=== PATIENT | male | born 1940 | race Caucasian/White ===

== ENCOUNTER → 2023-10-03 08:32 | Outpatient (CLI) | payer MEDICARE, SELFPAY ==
[2023-10-03 10:06] LABS: Add Manual Diff / Slide Review NO; Basophils Absolute Auto 100 /uL (0-100); Basophils Percent Auto 0.7 % (0-2); Eosinophils Absolute Auto 300 /uL (0-450); Eosinophils Percent Auto 3.5 % (2-4); Hematocrit 40.5 % (41-53); Hemoglobin 13.7 g/dL (13.5-17.5); Lymphocytes Absolute Auto 3500 /uL (1100-4500); Lymphocytes Percent Auto 41.4 % (25-40); Mean Corpuscular HGB Conc 33.8 % (30-36); Mean Corpuscular Volume 94.8 fL (80-100); Monocytes Absolute Auto 700 /uL (0-900); Monocytes Percent Auto 8.3 % (3-14); Neutrophils Absolute Auto 3800 /uL (1500-7000); Neutrophils Percent Auto 46.1 % (50-75); Platelet Count 132 X10^3/uL (150-400); Red Blood Cell Count 4.28 X10^6/uL (4.5-5.9); Red Cell Distribution Width 15.7 % (11.6-14.8); White Blood Cell Count 8.3 X10^3/uL (4.5-11.0)
[2023-10-03 10:30] LABS: Alanine Aminotransferase 21 IU/L (<50); Albumin 4.1 g/dL (3.5-5.0); Albumin Globulin Ratio 1.1 (1.0-2.8); Alkaline Phosphatase 202 U/L (38-126); Aspartate Aminotransferase 32 IU/L (17-59); Bilirubin Total 1.2 mg/dL (0.2-1.3); Blood Urea Nitrogen 47 mg/dL (9-20); Calcium 9.1 mg/dL (8.4-10.2); Carbon Dioxide 27 mmol/L (22-32); Chloride 102 mmol/L (98-107); Estimated Glomerular Filt Rate 32 mL/min (>60); Globulin 3.6 g/dL (1.7-4.1); Glucose 78 mg/dL (80-110); HEMOLYSIS < 15 (0-50); Potassium 4.5 mmol/L (3.4-5.1); Sodium 139 mmol/L (137-145); Total Protein 7.7 g/dL (6.3-8.2)
[2023-10-03 10:33] LABS: NT-proBNP (BNP-Adult 18+) 6630 pg/mL (<450)
== END ==
LOC: LAB 08:37
PROVIDERS: PCP Internal Medicine; Referring Provider Internal Medicine Pulmonary Disease; Visit Provider Internal Medicine Pulmonary Disease
DX: J84.112 Idiopathic pulmonary fibrosis (principal); I27.20 Pulmonary hypertension, unspecified
CPT/HCPCS: 36415; 80053; 83880; 85025

== ENCOUNTER → 2023-10-16 09:13 | Outpatient (CLI) | payer MEDICARE, SELFPAY ==
[2023-10-16 10:14] LABS: Alanine Aminotransferase 19 IU/L (<50); Albumin Globulin Ratio 1.1 (1.0-2.8); Alkaline Phosphatase 177 U/L (38-126); Aspartate Aminotransferase 29 IU/L (17-59); BUN Creatinine Ratio 22.7 (6-22); Bilirubin Total 1.2 mg/dL (0.2-1.3); Blood Urea Nitrogen 44 mg/dL (9-20); Calcium 8.9 mg/dL (8.4-10.2); Carbon Dioxide 26 mmol/L (22-32); Chloride 102 mmol/L (98-107); Estimated Glomerular Filt Rate 34 mL/min (>60); Globulin 3.6 g/dL (1.7-4.1); Glucose 76 mg/dL (80-110); HEMOLYSIS < 15 (0-50); Potassium 4.9 mmol/L (3.4-5.1); Sodium 136 mmol/L (137-145); Total Protein 7.6 g/dL (6.3-8.2)
== END ==
PROVIDERS: PCP Internal Medicine; Referring Provider Internal Medicine Pulmonary Disease; Visit Provider Internal Medicine Pulmonary Disease
DX: J84.112 Idiopathic pulmonary fibrosis (principal)
CPT/HCPCS: 36415; 80053

== ENCOUNTER → 2024-01-05 10:28 | Outpatient (CLI) | payer MEDICARE, SELFPAY ==
[2024-01-05 11:31] LABS: Add Manual Diff / Slide Review NO; Basophils Absolute Auto 100 /uL (0-100); Basophils Percent Auto 0.8 % (0-2); Eosinophils Absolute Auto 500 /uL (0-450); Eosinophils Percent Auto 5.5 % (2-4); Hematocrit 41.1 % (41-53); Hemoglobin 13.7 g/dL (13.5-17.5); Lymphocytes Absolute Auto 3100 /uL (1100-4500); Lymphocytes Percent Auto 36.8 % (25-40); Mean Corpuscular HGB Conc 33.4 % (30-36); Mean Corpuscular Hemoglobin 32.5 PG (26-34); Mean Corpuscular Volume 97.5 fL (80-100); Monocytes Absolute Auto 800 /uL (0-900); Monocytes Percent Auto 9.4 % (3-14); Neutrophils Absolute Auto 4000 /uL (1500-7000); Neutrophils Percent Auto 47.5 % (50-75); Platelet Count 130 X10^3/uL (150-400); Red Blood Cell Count 4.21 X10^6/uL (4.5-5.9); Red Cell Distribution Width 15.9 % (11.6-14.8); White Blood Cell Count 8.3 X10^3/uL (4.5-11.0)
[2024-01-05 17:43] LABS: Alanine Aminotransferase 18 IU/L (<50); Albumin 4.5 g/dL (3.5-5.0); Albumin Globulin Ratio 1.4 (1.0-2.8); Alkaline Phosphatase 160 U/L (38-126); Aspartate Aminotransferase 37 IU/L (17-59); Blood Urea Nitrogen 47 mg/dL (9-20); Calcium 8.8 mg/dL (8.4-10.2); Carbon Dioxide 29 mmol/L (22-32); Chloride 101 mmol/L (98-107); Estimated Glomerular Filt Rate 35 mL/min (>60); Globulin 3.3 g/dL (1.7-4.1); Glucose 137 mg/dL (80-110); HEMOLYSIS 49 (0-50); NT-proBNP (BNP-Adult 18+) 4590 pg/mL (<450); Potassium 5.3 mmol/L (3.4-5.1); Sodium 139 mmol/L (137-145); Total Protein 7.8 g/dL (6.3-8.2)
== END ==
PROVIDERS: PCP Internal Medicine; Referring Provider Internal Medicine Pulmonary Disease; Visit Provider Internal Medicine Pulmonary Disease
DX: J84.112 Idiopathic pulmonary fibrosis (principal)
CPT/HCPCS: 36415; 80053; 83880; 85025

== ENCOUNTER 2024-09-11 09:55 | Inpatient (IN) | payer MEDICARE, SELFPAY ==
[2024-09-11] VITALS (22 sets, daily range): BP systolic 130–160; BP diastolic 73–89; PULSE 87–94; RESP 14–28; TEMP 36.3–37.2; O2SAT 94–99; BMI 21.4
--- NOTE | 2024-09-11 10:11 | PC.NURSE ---
This RN reviewed patient orders with provider. Provider asked this RN to place the abdominal order set on patient but not the EKG. Provider than asked to include 1000ml normal saline bolus IV. This RN placed orders that provider gave verbally.
[2024-09-11] MEDS: SODIUM CHLORIDE 0.9% 1,000 ML 1000 ML IV (10:16)
[2024-09-11] MEDS: ONDANSETRON 4 MG/2 ML INJ IV (10:16)
[2024-09-11 10:21] LABS: Add Manual Diff / Slide Review NO; Basophils Absolute Auto 100 /uL (0-100); Basophils Percent Auto 1.2 % (0-2); Eosinophils Absolute Auto 500 /uL (0-450); Eosinophils Percent Auto 7.8 % (2-4); Hematocrit 46.3 % (41-53); Hemoglobin 15.4 g/dL (13.5-17.5); Lymphocytes Absolute Auto 1600 /uL (1100-4500); Lymphocytes Percent Auto 23.4 % (25-40); Mean Corpuscular HGB Conc 33.2 % (30-36); Mean Corpuscular Hemoglobin 32.7 PG (26-34); Mean Corpuscular Volume 98.4 fL (80-100); Monocytes Absolute Auto 800 /uL (0-900); Monocytes Percent Auto 11.6 % (3-14); Neutrophils Absolute Auto 3800 /uL (1500-7000); Platelet Count 97 X10^3/uL (150-400); Red Cell Distribution Width 16.3 % (11.6-14.8); White Blood Cell Count 6.9 X10^3/uL (4.5-11.0)
[2024-09-11 10:25] LABS: Alanine Aminotransferase 27 IU/L (<50); Albumin 4.5 g/dL (3.5-5.0); Albumin Globulin Ratio 1.1 (1.0-2.8); Alkaline Phosphatase 345 U/L (38-126); Aspartate Aminotransferase 45 IU/L (17-59); BUN Creatinine Ratio 17.6 (6-22); Bilirubin Total 2.3 mg/dL (0.2-1.3); Blood Urea Nitrogen 28 mg/dL (9-20); Calcium 9.1 mg/dL (8.4-10.2); Carbon Dioxide 28 mmol/L (22-32); Chloride 99 mmol/L (98-107); Estimated Glomerular Filt Rate 43 mL/min (>60); Globulin 4.2 g/dL (1.7-4.1); Glucose 110 mg/dL (80-110); HEMOLYSIS < 15 (0-50); Lipase 41 U/L (23-300); Potassium 4.7 mmol/L (3.4-5.1); Sodium 136 mmol/L (137-145); Total Protein 8.7 g/dL (6.3-8.2)
--- NOTE | 2024-09-11 10:31 | ED_ITS ---
HPI - Nausea/Vomiting/Diarrhea General Chief complaint: Nausea/Vomiting/Diarrhea Stated complaint: N/V 1 month Time Seen by Provider: 09/11/24 10:18 Source: patient Mode of arrival: EMS History of Present Illness HPI Narrative: Patient is here with and daughter. Brought in by ambulance from [facility], his home. Patient has had nausea vomiting diarrhea for the past 3 or 4 weeks. Denies abdominal pain. No hematuria no black or bloody stools. Patient has history of idiopathic pulmonary fibrosis sees Pulmonary Services at [facility]. Primary care he sees Ria dubose. Locally. Patient and and daughter have discussed and patient is DNR DNI with selective treatment at this time. There is a pulse form at home but regardless of what it says at home this is what they want at this time. They do desire Zofran normal saline basic labs and CT imaging. Related Data Home Medications Medication Instructions Recorded Confirmed furosemide 40 mg tablet 40 mg PO QAM 09/11/24 09/11/24 gabapentin 300 mg capsule 300 mg PO 3XD 09/11/24 09/11/24 insulin glargine 100 unit/mL (3 10 unit SUBCUT BID 09/11/24 09/11/24 mL) subcutaneous pen (Lantus Solostar U-100 Insulin) levothyroxine 175 mcg tablet 175 mcg PO DAILY 09/11/24 09/11/24 ondansetron HCl 4 mg tablet 4 mg PO BID PRN Nausea And Vomiting 09/11/24 09/11/24 tadalafil 20 mg tablet 20 mg PO DAILY 09/11/24 09/11/24 valsartan 40 mg tablet 40 mg PO DAILY 09/11/24 09/11/24 Allergies Allergy/AdvReac Type Severity Reaction Status Date / Time naproxen [From Aleve] Allergy Verified 09/11/24 09:59 Review of Systems Review of Systems Narrative: GENERAL: Negative chills, fatigue, malaise, fever, sweats. HEENT: Negative sinus pain, ear pain, sore throat RESPIRATORY: Negative dyspnea, cough CARDIOVASCULAR: Negative chest pain, palpitations GASTROINTESTINAL: Positive nausea, vomiting, abdominal pain : Negative dysuria, frequency, hematuria MUSCULOSKELETAL: Negative muscle or bony pain SKIN: Negative rash, skin lesions NEUROLOGIC: Negative weakness, numbness ROS Unobtainable: All systems reviewed & are unremarkable except as noted in HPI and below Patient History Social History household members: spouse Smoking Status: Former smoker Smoking Status: Unknown if ever smoked Exam Narrative Exam Narrative: GENERAL: in no distress, not toxic not dyspneic HEAD: Normocephalic. EYES: Pupils equal round ENT: Mucous membranes dry. NECK: Trachea midline. CARDIOVASCULAR: Regular rate and rhythm RESPIRATORY: Clear to auscultation. Breath sounds equal bilaterally. No wheezes, rales, or rhonchi. GASTROINTESTINAL: Abdomen soft, reproducible epigastric and left lower quadrant tenderness. No peritoneal signs no guarding or rebound. No pain out of portion exam. Bowel sounds are present EXTREMITIES: No gross deformities. BACK: No flank tenderness. NEURO: AOx4. Clear speech SKIN: Warm and dry PSYCH: Not anxious, is cooperative Initial Vital Signs Initial Vital Signs: Vital Signs Temperature 97.6 F 09/11/24 09:55 Pulse Rate 90 09/11/24 09:55 Respiratory Rate 14 09/11/24 09:55 Blood Pressure 149/76 H 09/11/24 09:55 Pulse Oximetry 97 09/11/24 09:55 Oxygen Delivery Method Nasal Cannula 09/11/24 09:55 Oxygen Flow Rate 4 09/11/24 09:55 Course Orders Ordered: ED Orders 09/11/24 10:07 Complete Blood Count AUTO DIFF Stat Comprehensive Metabolic Panel Stat Lipase Stat 09/11/24 10:19 GI Panel (Film Array) Stat 09/11/24 10:30 CT chest abd pel wo con Stat 09/11/24 10:35 Covid-19 + FLU A/B + RSV - PCR Stat Enoxaparin Sodium (Enoxaparin 30 Mg/0.3 Ml Syringe) 30 mg SUBCUT DAILY KINGS Hydromorphone HCl (Hydromorphone 0.5 Mg Inj) 0.5 mg IV Q2H PRN PRN Reason: Pain, Severe (7-10) Sodium Chloride (Normal Saline 0.9%) 1,000 mls @ 100 mls/hr IV CONT KINGS Last Admin: 09/11/24 14:44 Dose: 100 mls/hr Documented By: GAIL Naloxone HCl (Naloxone 0.4 Mg/Ml Vial) 0.2 mg IV Q2MIN PRN PRN Reason: Opiate Reversal Ondansetron HCl (Ondansetron 4 Mg/2 Ml Inj) 4 mg IV NOW PRN PRN Reason: Nausea And Vomiting Last Admin: 09/11/24 10:16 Dose: 4 mg Documented By: DIEGO Ondansetron HCl (Ondansetron 4 Mg Odt) 4 mg PO NOW PRN PRN Reason: Nausea And Vomiting Ondansetron HCl (Ondansetron 4 Mg/2 Ml Inj) 4 mg IV Q8HR PRN PRN Reason: Nausea And Vomiting Pantoprazole Sodium (Pantoprazole 40 Mg Vial) 40 mg IV DAILY KINGS Last Admin: 09/11/24 14:43 Dose: 40 mg Documented By: GAIL Discontinued Medications Sodium Chloride (Normal Saline 0.9%) 1,000 mls @ 1,000 mls/hr IV BOLUS ONE Stop: 09/11/24 11:09 Last Infusion: 09/11/24 11:32 Dose: Infused Documented By: Admin: 09/11/24 10:16 Dose: 1,000 mls/hr Documented By: DIEGO Ceftriaxone Sodium 2,000 mg/ (Sodium Chloride) 100 mls @ 200 mls/hr IV NOW ONE Stop: 09/11/24 13:20 Last Admin: 09/11/24 14:08 Dose: 200 mls/hr Documented By: SELMA Vital Signs Vital signs: Vital Signs - 8 hr 09/11/24 09:55 09/11/24 09:58 09/11/24 09:58 Temperature 97.6 F Pulse Rate 90 90 Respiratory Rate 14 Blood Pressure 149/76 H 149/76 H Pulse Oximetry 97 98 Oxygen Delivery Method Nasal Cannula Nasal Cannula Oxygen Flow Rate 4 4 09/11/24 10:00 09/11/24 10:00 09/11/24 10:15 Temperature Pulse Rate 90 89 Respiratory Rate Blood Pressure 149/76 H Pulse Oximetry 98 97 Oxygen Delivery Method Nasal Cannula Nasal Cannula Oxygen Flow Rate 4 4 09/11/24 10:15 09/11/24 10:30 09/11/24 10:30 Temperature Pulse Rate 87 Respiratory Rate Blood Pressure 160/89 H 153/87 H Pulse Oximetry 96 Oxygen Delivery Method Nasal Cannula Oxygen Flow Rate 4 09/11/24 10:46 09/11/24 10:46 09/11/24 11:00 Temperature Pulse Rate 90 89 Respiratory Rate Blood Pressure 147/83 H Pulse Oximetry 95 97 Oxygen Delivery Method Nasal Cannula Nasal Cannula Oxygen Flow Rate 4 4 09/11/24 11:00 09/11/24 11:15 09/11/24 11:15 Temperature Pulse Rate 89 Respiratory Rate Blood Pressure 149/84 H 148/85 H Pulse Oximetry 98 Oxygen Delivery Method Nasal Cannula Oxygen Flow Rate 4 09/11/24 11:30 09/11/24 11:30 09/11/24 11:45 Temperature Pulse Rate 90 89 Respiratory Rate Blood Pressure 142/85 H Pulse Oximetry 99 98 Oxygen Delivery Method Nasal Cannula Oxygen Flow Rate 4 09/11/24 11:45 09/11/24 12:00 09/11/24 12:00 Temperature Pulse Rate 89 Respiratory Rate Blood Pressure 140/81 136/80 Pulse Oximetry 98 Oxygen Delivery Method Nasal Cannula Oxygen Flow Rate 4 09/11/24 12:15 09/11/24 12:15 09/11/24 12:30 Temperature Pulse Rate 87 Respiratory Rate Blood Pressure 137/80 132/80 Pulse Oximetry 98 Oxygen Delivery Method Nasal Cannula Oxygen Flow Rate 4 09/11/24 12:30 09/11/24 12:45 09/11/24 12:45 Temperature Pulse Rate 89 90 Respiratory Rate Blood Pressure 132/76 Pulse Oximetry 98 98 Oxygen Delivery Method Nasal Cannula Nasal Cannula Oxygen Flow Rate 4 4 09/11/24 13:00 09/11/24 13:00 09/11/24 13:15 Temperature Pulse Rate 91 H 89 Respiratory Rate Blood Pressure 140/81 Pulse Oximetry 96 97 Oxygen Delivery Method Nasal Cannula Nasal Cannula Oxygen Flow Rate 4 4 09/11/24 13:15 Temperature Pulse Rate Respiratory Rate Blood Pressure 139/78 Pulse Oximetry Oxygen Delivery Method Oxygen Flow Rate MDM - Nausea/Vomiting/Diarrhea Lab Data 09/11/24 10:07 09/11/24 10:07 Labs: Lab Results 09/11/24 09/11/24 Range/Units 10:07 10:35 WBC 6.9 (4.5-11.0) X10^3/uL RBC 4.70 (4.5-5.9) X10^6/uL Hgb 15.4 (13.5-17.5) g/dL Hct 46.3 (41-53) % MCV 98.4 (80-100) fL MCH 32.7 (26-34) PG MCHC 33.2 (30-36) % RDW 16.3 H (11.6-14.8) % Plt Count 97 L (150-400) X10^3/uL Neut % (Auto) 56.0 (50-75) % Lymph % (Auto) 23.4 L (25-40) % [place] % (Auto) 11.6 (3-14) % Eos % (Auto) 7.8 H (2-4) % Baso % (Auto) 1.2 (0-2) % Neut # (Auto) 3800 (1036-3172) /uL Lymph # (Auto) 1600 (6027-7237) /uL [place] # (Auto) 800 (0-900) /uL Eos # (Auto) 500 H (0-450) /uL Baso # (Auto) 100 (0-100) /uL Sodium 136 L (137-145) mmol/L Potassium 4.7 (3.4-5.1) mmol/L Chloride 99 (98-107) mmol/L Carbon Dioxide 28 (22-32) mmol/L BUN 28 H (9-20) mg/dL Creatinine 1.59 H (0.66-1.25) mg/dL Estimated GFR 43 L (>60) mL/min BUN/Creatinine Ratio 17.6 (6-22) Glucose 110 (80-110) mg/dL Calcium 9.1 (8.4-10.2) mg/dL Total Bilirubin 2.3 H (0.2-1.3) mg/dL AST 45 (17-59) IU/L ALT 27 (<50) IU/L Alkaline Phosphatase 345 H (38-126) U/L Total Protein 8.7 H (6.3-8.2) g/dL Albumin 4.5 (3.5-5.0) g/dL Globulin 4.2 H (1.7-4.1) g/dL Albumin/Globulin Ratio 1.1 (1.0-2.8) Lipase 41 (23-300) U/L SARS-CoV-2 (PCR) Negative (Negative) Influenza A (RT-PCR) Flu a negative (NEGATIVE) Influenza B (RT-PCR) Flu b negative (NEGATIVE) RSV (PCR) Negative (Negative) Imaging Data CT scan - abdomen/pelvis: Radiologist's Impression: [address] [address] [address] Scan Report Signed Patient: Alan Rankin MR#: [id number] : 1940 Acct:[id number] Age/Sex: 84 / M Date of Service: 09/11/24 Loc: ED Accession Number: [id number] Procedure: CT chest abd pel wo con Ordering Provider: Jaquan Mayer MD PROCEDURE: CT CHEST ABD PEL WO CON INDICATIONS: Sepsis TECHNIQUE: After the administration of oral contrast, 5 mm thick sections acquired from the lung apices to the symphysis pubis. 5 mm thick coronal and sagittal reformats acquired, with additional 7 mm coronal MIP reformats through the lungs. For radiation dose reduction, the following was used: automated exposure control, adjustment of mA and/or kV according to patient size. COMPARISON: None. FINDINGS: Image quality: Diagnostic. CHEST: Lower Neck: No enlarged lymph nodes. Thyroid: No thyroid nodules which require sonographic follow up, per consensus guidelines. Axillae: No enlarged lymph nodes. Chest Wall: Unremarkable. Bones: Unremarkable. Lungs and Pleura: No pneumothorax or pleural effusions. Mild changes of diffuse pulmonary fibrosis. There is a mid bibasilar predominance where there is honeycombing. There is focal thickening along the posterior superior aspect of the right major fissure. No focal airspace consolidation. Heart: Cardiomegaly. Advanced triple-vessel coronary artery calcifications. Enlargement of the ventricles and right atrium. Remote CABG. Thoracic Vessels: The aorta and pulmonary arteries demonstrate normal size. Mediastinum and Millicent: No enlarged lymph nodes. Esophagus: No wall thickening. No hiatal hernia. ABDOMEN: Liver: No solid mass. Gallbladder: Tiny gallstone. No gallbladder wall thickening. Gallbladder is mildly distended. Biliary ducts: No biliary dilation. Pancreas: No ductal dilation. Pancreatic atrophy. Inflammatory change in the subjacent fat, most notably in the vicinity of a duodenal diverticulum. Spleen: Size is within normal limits. Adrenal Glands: No adrenal nodules. Kidneys and Ureters: No hydronephrosis. No solid mass. No complex renal cystic lesion which requires follow up. Stomach and Bowel: Question diverticulitis of a duodenal diverticulum. Reference axial image 111 of series 2. There is inflammatory change in the subjacent fat. There is an air-fluid level and there is non layering air present within the diverticula as well. Alternatively, the subjacent inflammatory change can be related to pancreatitis. Normal colonic caliber, without significant wall thickening. Colonic diverticulosis without evidence of acute diverticulitis. Possible mild ileus pattern. Peritoneum: No abnormal intraperitoneal fluid. No free air. Ventral Wall: No hernia. Abdominal Nodes: No retroperitoneal or mesenteric adenopathy by size criteria. Vessels: Aorta and inferior vena cava are normal in size. PELVIS: Pelvic Organs: Prostatomegaly. Bladder: Unremarkable. Pelvic Nodes: No enlarged lymph nodes. Miscellaneous: No inguinal hernias are seen. Bones: No aggressive osseous abnormality. IMPRESSION: 1. Question acute diverticulitis of a duodenal diverticulum versus the presence of a diverticulum and subjacent inflammatory change from pancreatitis. Duodenal diverticulum diverticulitis is favored based on the pattern of air and fluid within the diverticulum. 2. Chronic interstitial pulmonary fibrosis. 3. Remote CABG, it advanced coronary artery calcifications, cardiomegaly. 4. Cholelithiasis. 5. Colonic diverticulosis. Dictated by: Shelton Field M.D. on 09/11/2024 at 11:00 Approved by: Shelton Field M.D. on 09/11/2024 at 11:12 [facility] Narrative Medical decision making narrative: Patient is here with and daughter. Brought in by ambulance from [facility], his home. Patient has had nausea vomiting diarrhea for the past 3 or 4 weeks. Denies abdominal pain. No hematuria no black or bloody stools. Patient has history of idiopathic pulmonary fibrosis sees Pulmonary Services at [facility]. Primary care he sees Ria dubose. Locally. Patient and and daughter have discussed and patient is DNR DNI with selective treatment at this time. There is a pulse form at home but regardless of what it says at home this is what they want at this time. They do desire Zofran normal saline basic labs and CT imaging. After history and exam CBC CMP lipase CT abdomen pelvis normal saline Zofran [facility] Medical records reviewed: No recent visit for this complaint Differential considered: Includes but not limited to bowel obstruction colitis diverticulitis cholelithiasis appendicitis bowel perforation viral syndrome Lab Test results independently reviewed as above. Pertinent findings: Independently reviewed EKG Imaging studies independently reviewed: CT abdomen pelvis duodenal diverticulitis Consultations: 1:[address] Yu, general surgeon, has reviewed CT imaging. He will follow in consult. Will recommend soft diet, start antibiotics. 1:[address] Berg hospitalist, who will admit patient Treatments: Normal saline Rocephin Re-evaluations: 1:00 p.m.. Patient is feeling better but is fearful of nausea vomiting diarrhea returning if home treatment with oral antibiotics. They do desire admission in the hospital. Discussion: Appropriate for admission. Reviewed with hospitalist and general surgeon agree for admit. Diagnosis: Duodenal diverticulitis Discharge Plan Departure Patient Disposition: Admitted as Observation Clinical Impression: Diverticulitis of duodenum Admit Date/Time: 09/11/24 13:19 Admit Provider: Kemar Berg
[2024-09-11 11:18] LABS: Influenza A - CEPHEID Flu A NEGATIVE (NEGATIVE); Influenza B - CEPHEID Flu B NEGATIVE (NEGATIVE); Respiratory Syncytial Virus Negative (Negative)
[2024-09-11 11:22] LABS: COVID-19 CEPHEID 4-PLEX PCR Negative (Negative)
--- NOTE | 2024-09-11 13:28 | PM.HP.1 ---
History of Present Illness History of Present Illness Date Patient Seen: 09/11/24 Chief complaint: N/V 1 month Narrative: This is an 84-year-old male with idiopathic pulmonary fibrosis who presents with 3 weeks of abdominal pain, nausea and diarrhea. His CT scan shows duodenal diverticulum inflammation consistent with an atypical location for diverticulitis. He has no history of diverticulitis. He denies bloody diarrhea or hematemesis. He has no fevers. At baseline he is on 3 L nasal cannula oxygen for the last 8 years to treat his pulmonary fibrosis. His lipase level is normal at 41. Surgery will see him. He will be kept NPO until the pain diminishes and will be treated with Zosyn. [facility]LY [facility] Medical History (Updated 09/11/24 @ 18:11 by Kemar Berg MD) IPF (idiopathic pulmonary fibrosis) CAD (coronary artery disease) Surgical History (Updated 09/11/24 @ 18:11 by Kemar Berg MD) Hx of CABG Social History household members: spouse Smoking Status: Former smoker Meds Home Medications and Allergies Home Medications Medication Instructions Recorded Confirmed Type furosemide 40 mg tablet 40 mg PO QAM 09/11/24 09/11/24 History gabapentin 300 mg capsule 300 mg PO 3XD 09/11/24 09/11/24 History insulin glargine 100 unit/mL (3 10 unit SUBCUT BID 09/11/24 09/11/24 History mL) subcutaneous pen (Lantus Solostar U-100 Insulin) levothyroxine 175 mcg tablet 175 mcg PO DAILY 09/11/24 09/11/24 History ondansetron HCl 4 mg tablet 4 mg PO BID PRN Nausea And Vomiting 09/11/24 09/11/24 History tadalafil 20 mg tablet 20 mg PO DAILY 09/11/24 09/11/24 History valsartan 40 mg tablet 40 mg PO DAILY 09/11/24 09/11/24 History Allergies Allergy/AdvReac Type Severity Reaction Status Date / Time naproxen [From Aleve] Allergy Verified 09/11/24 09:59 Review of Systems Review of Systems Narrative: Positive for abdominal pain, nausea and vomiting. Positive for brown colored copious liquid stools. Negative for fevers, chills, sweats, coughing, chest pain, abdominal pain, bleeding, rashes, joint pain, sore throat, headache, new allergies. Exam Vital Signs (past 8 hours): - 09/11/24 09:55 09/11/24 09:58 09/11/24 09:58 Temperature 97.6 F Pulse Rate 90 90 Respiratory Rate 14 Blood Pressure 149/76 H 149/76 H Pulse Oximetry 97 98 Oxygen Delivery Method Nasal Cannula Nasal Cannula Oxygen Flow Rate 4 4 09/11/24 10:00 09/11/24 10:00 09/11/24 10:15 Temperature Pulse Rate 90 89 Respiratory Rate Blood Pressure 149/76 H Pulse Oximetry 98 97 Oxygen Delivery Method Nasal Cannula Nasal Cannula Oxygen Flow Rate 4 4 09/11/24 10:15 09/11/24 10:30 09/11/24 10:30 Temperature Pulse Rate 87 Respiratory Rate Blood Pressure 160/89 H 153/87 H Pulse Oximetry 96 Oxygen Delivery Method Nasal Cannula Oxygen Flow Rate 4 09/11/24 10:46 09/11/24 10:46 09/11/24 11:00 Temperature Pulse Rate 90 89 Respiratory Rate Blood Pressure 147/83 H Pulse Oximetry 95 97 Oxygen Delivery Method Nasal Cannula Nasal Cannula Oxygen Flow Rate 4 4 09/11/24 11:00 09/11/24 11:15 09/11/24 11:15 Temperature Pulse Rate 89 Respiratory Rate Blood Pressure 149/84 H 148/85 H Pulse Oximetry 98 Oxygen Delivery Method Nasal Cannula Oxygen Flow Rate 4 09/11/24 11:30 09/11/24 11:30 09/11/24 11:45 Temperature Pulse Rate 90 89 Respiratory Rate Blood Pressure 142/85 H Pulse Oximetry 99 98 Oxygen Delivery Method Nasal Cannula Oxygen Flow Rate 4 09/11/24 11:45 09/11/24 12:00 09/11/24 12:00 Temperature Pulse Rate 89 Respiratory Rate Blood Pressure 140/81 136/80 Pulse Oximetry 98 Oxygen Delivery Method Nasal Cannula Oxygen Flow Rate 4 09/11/24 12:15 09/11/24 12:15 09/11/24 12:30 Temperature Pulse Rate 87 Respiratory Rate Blood Pressure 137/80 132/80 Pulse Oximetry 98 Oxygen Delivery Method Nasal Cannula Oxygen Flow Rate 4 09/11/24 12:30 09/11/24 12:45 09/11/24 12:45 Temperature Pulse Rate 89 90 Respiratory Rate Blood Pressure 132/76 Pulse Oximetry 98 98 Oxygen Delivery Method Nasal Cannula Nasal Cannula Oxygen Flow Rate 4 4 09/11/24 13:00 09/11/24 13:00 Temperature Pulse Rate 91 H Respiratory Rate Blood Pressure 140/81 Pulse Oximetry 96 Oxygen Delivery Method Nasal Cannula Oxygen Flow Rate 4 Oxygen Delivery Method Nasal Cannula Oxygen Flow Rate 4 Narrative Exam Narrative: Alert and oriented x3. No apparent distress Pupils are equally round reactive to light and accommodation Sclerae are pink and nonicteric Extraocular muscles are intact Heart is regular rate and rhythm without murmur Lungs are clear to auscultation bilaterally Extremities have no ankle edema Abdomen is soft, diffusely mildly tender without localizing. Bowel sounds are active. No organomegaly Skin has no rash or jaundice Neuro exam: Cranial nerves 2-12 test intact Motor function is 4/5 throughout There is no tremor. Objective Imaging CT scan - abdomen: Radiologist's impression: PROCEDURE: CT CHEST ABD PEL WO CON INDICATIONS: Sepsis TECHNIQUE: After the administration of oral contrast, 5 mm thick sections acquired from the lung apices to the symphysis pubis. 5 mm thick coronal and sagittal reformats acquired, with additional 7 mm coronal MIP reformats through the lungs. For radiation dose reduction, the following was used: automated exposure control, adjustment of mA and/or kV according to patient size. COMPARISON: None. FINDINGS: Image quality: Diagnostic. CHEST: Lower Neck: No enlarged lymph nodes. Thyroid: No thyroid nodules which require sonographic follow up, per consensus guidelines. Axillae: No enlarged lymph nodes. Chest Wall: Unremarkable. Bones: Unremarkable. Lungs and Pleura: No pneumothorax or pleural effusions. Mild changes of diffuse pulmonary fibrosis. There is a mid bibasilar predominance where there is honeycombing. There is focal thickening along the posterior superior aspect of the right major fissure. No focal airspace consolidation. Heart: Cardiomegaly. Advanced triple-vessel coronary artery calcifications. Enlargement of the ventricles and right atrium. Remote CABG. Thoracic Vessels: The aorta and pulmonary arteries demonstrate normal size. Mediastinum and Millicent: No enlarged lymph nodes. Esophagus: No wall thickening. No hiatal hernia. ABDOMEN: Liver: No solid mass. Gallbladder: Tiny gallstone. No gallbladder wall thickening. Gallbladder is mildly distended. Biliary ducts: No biliary dilation. Pancreas: No ductal dilation. Pancreatic atrophy. Inflammatory change in the subjacent fat, most notably in the vicinity of a duodenal diverticulum. Spleen: Size is within normal limits. Adrenal Glands: No adrenal nodules. Kidneys and Ureters: No hydronephrosis. No solid mass. No complex renal cystic lesion which requires follow up. Stomach and Bowel: Question diverticulitis of a duodenal diverticulum. Reference axial image 111 of series 2. There is inflammatory change in the subjacent fat. There is an air-fluid level and there is non layering air present within the diverticula as well. Alternatively, the subjacent inflammatory change can be related to pancreatitis. Normal colonic caliber, without significant wall thickening. Colonic diverticulosis without evidence of acute diverticulitis. Possible mild ileus pattern. Peritoneum: No abnormal intraperitoneal fluid. No free air. Ventral Wall: No hernia. Abdominal Nodes: No retroperitoneal or mesenteric adenopathy by size criteria. Vessels: Aorta and inferior vena cava are normal in size. PELVIS: Pelvic Organs: Prostatomegaly. Bladder: Unremarkable. Pelvic Nodes: No enlarged lymph nodes. Miscellaneous: No inguinal hernias are seen. Bones: No aggressive osseous abnormality. IMPRESSION: 1. Question acute diverticulitis of a duodenal diverticulum versus the presence of a diverticulum and subjacent inflammatory change from pancreatitis. Duodenal diverticulum diverticulitis is favored based on the pattern of air and fluid within the diverticulum. 2. Chronic interstitial pulmonary fibrosis. 3. Remote CABG, it advanced coronary artery calcifications, cardiomegaly. 4. Cholelithiasis. 5. Colonic diverticulosis. Dictated by: Shelton Field M.D. on 09/11/2024 at 11:00 Labs 09/11/24 10:07 09/11/24 10:07 Labs: Laboratory Results - last 24 hr 09/11/24 09/11/24 10:07 10:35 WBC 6.9 RBC 4.70 Hgb 15.4 Hct 46.3 MCV 98.4 MCH 32.7 MCHC 33.2 RDW 16.3 H Plt Count 97 L Neut % (Auto) 56.0 Lymph % (Auto) 23.[address] [place] % (Auto) 11.6 Eos % (Auto) 7.8 H Baso % (Auto) 1.2 Neut # (Auto) 3800 Lymph # (Auto) [address] [place] # (Auto) 800 Eos # (Auto) 500 H Baso # (Auto) 100 Sodium 136 L Potassium 4.7 Chloride 99 Carbon Dioxide 28 BUN 28 H Creatinine 1.59 H Estimated GFR 43 L BUN/Creatinine Ratio 17.6 Glucose 110 Calcium 9.1 Total Bilirubin 2.3 H AST 45 ALT 27 Alkaline Phosphatase 345 H Total Protein 8.7 H Albumin 4.5 Globulin 4.2 H Albumin/Globulin Ratio 1.1 Lipase 41 SARS-CoV-2 (PCR) Negative Influenza A (RT-PCR) Flu a negative Influenza B (RT-PCR) Flu b negative RSV (PCR) Negative Assessment & Plan Assessment & Plan narrative: This is an 84-year-old male with idiopathic pulmonary fibrosis who presents with 3 weeks of abdominal pain, nausea and diarrhea. His CT scan shows duodenal diverticulum inflammation consistent with an atypical location for diverticulitis. Small-bowel diverticulitis, present on admission -duodenal diverticular inflammation unlikely to be pancreatitis with normal lipase. -High risk for perforation/bleeding -surgery following, NPO, IV fluid support, Dilaudid IV as needed -IV Zosyn, IV Protonix Type 2 diabetes mellitus, present on admission -correctional lispro scale low-dose with glargine on hold until able to take nutrition by mouth. Hypertension, present on admission -continue valsartan and hold furosemide, resume as needed Hypothyroidism, present on admission -continue levothyroxine DVT prevention-enoxaparin Time-Based Coding :: [TOTAL MINUTES] spent with patient and on the chart (including review of chart, obtaining history, exam, reviewing outside data, placing orders, documenting exam and treatment plan, and counseling patient) on [DATE].
[2024-09-11] MEDS: cefTRIAXone 2,000 MG in SODIUM CHLORIDE 0.9% 100 ML 200 MG IV (14:08)
[2024-09-11] MEDS: PANTOPRAZOLE 40 MG VIAL IV ×2 (14:43→20:17)
[2024-09-11] MEDS: SODIUM CHLORIDE 0.9% 1,000 ML 100 ML IV (14:44)
[2024-09-11] MEDS: ONDANSETRON 4 MG ODT PO (15:13)
--- NOTE | 2024-09-11 16:37 | P.CONS_ITS ---
History of Present Illness Consult details Date Patient Seen: 09/11/24 Time Patient Seen: 16:37 Chief complaint: N/V 1 month Requesting provider: Kemar Berg Narrative: This is an 84-year-old white male with a CT scan showing duodenal diverticulitis. He has had nausea and vomiting for about a month along with diarrhea. It has gotten worse and he presented to the ER. He stated that several years ago he had the same event, underwent an EGD at that time and it improved with antibiotics. He is currently having some epigastric pain, and is concerned that drinking we will cause more diarrhea. He had a previous open heart surgery. No prior abdominal surgeries. Meds Home Medications and Allergies Home Medications Medication Instructions Recorded Confirmed Type furosemide 40 mg tablet 40 mg PO QAM 09/11/24 09/11/24 History gabapentin 300 mg capsule 300 mg PO 3XD 09/11/24 09/11/24 History insulin glargine 100 unit/mL (3 10 unit SUBCUT BID 09/11/24 09/11/24 History mL) subcutaneous pen (Lantus Solostar U-100 Insulin) levothyroxine 175 mcg tablet 175 mcg PO DAILY 09/11/24 09/11/24 History ondansetron HCl 4 mg tablet 4 mg PO BID PRN Nausea And Vomiting 09/11/24 09/11/24 History tadalafil 20 mg tablet 20 mg PO DAILY 09/11/24 09/11/24 History valsartan 40 mg tablet 40 mg PO DAILY 09/11/24 09/11/24 History Allergies Allergy/AdvReac Type Severity Reaction Status Date / Time naproxen [From Aleve] Allergy Verified 09/11/24 09:59 Review of Systems Review of Systems ROS: Yes All systems reviewed with the patient and are negative except as otherwise documented Exam Vital Signs (past 8 hours): - 09/11/24 09:55 09/11/24 09:58 09/11/24 09:58 Temperature 97.6 F Pulse Rate 90 90 Respiratory Rate 14 Blood Pressure 149/76 H 149/76 H Pulse Oximetry 97 98 Oxygen Delivery Method Nasal Cannula Nasal Cannula Oxygen Flow Rate 4 4 09/11/24 10:00 09/11/24 10:00 09/11/24 10:15 Temperature Pulse Rate 90 89 Respiratory Rate Blood Pressure 149/76 H Pulse Oximetry 98 97 Oxygen Delivery Method Nasal Cannula Nasal Cannula Oxygen Flow Rate 4 4 09/11/24 10:15 09/11/24 10:30 09/11/24 10:30 Temperature Pulse Rate 87 Respiratory Rate Blood Pressure 160/89 H 153/87 H Pulse Oximetry 96 Oxygen Delivery Method Nasal Cannula Oxygen Flow Rate 4 09/11/24 10:46 09/11/24 10:46 09/11/24 11:00 Temperature Pulse Rate 90 89 Respiratory Rate Blood Pressure 147/83 H Pulse Oximetry 95 97 Oxygen Delivery Method Nasal Cannula Nasal Cannula Oxygen Flow Rate 4 4 09/11/24 11:00 09/11/24 11:15 09/11/24 11:15 Temperature Pulse Rate 89 Respiratory Rate Blood Pressure 149/84 H 148/85 H Pulse Oximetry 98 Oxygen Delivery Method Nasal Cannula Oxygen Flow Rate 4 09/11/24 11:30 09/11/24 11:30 09/11/24 11:45 Temperature Pulse Rate 90 89 Respiratory Rate Blood Pressure 142/85 H Pulse Oximetry 99 98 Oxygen Delivery Method Nasal Cannula Oxygen Flow Rate 4 09/11/24 11:45 09/11/24 12:00 09/11/24 12:00 Temperature Pulse Rate 89 Respiratory Rate Blood Pressure 140/81 136/80 Pulse Oximetry 98 Oxygen Delivery Method Nasal Cannula Oxygen Flow Rate 4 09/11/24 12:15 09/11/24 12:15 09/11/24 12:30 Temperature Pulse Rate 87 Respiratory Rate Blood Pressure 137/80 132/80 Pulse Oximetry 98 Oxygen Delivery Method Nasal Cannula Oxygen Flow Rate 4 09/11/24 12:30 09/11/24 12:45 09/11/24 12:45 Temperature Pulse Rate 89 90 Respiratory Rate Blood Pressure 132/76 Pulse Oximetry 98 98 Oxygen Delivery Method Nasal Cannula Nasal Cannula Oxygen Flow Rate 4 4 09/11/24 13:00 09/11/24 13:00 09/11/24 13:15 Temperature Pulse Rate 91 H 89 Respiratory Rate Blood Pressure 140/81 Pulse Oximetry 96 97 Oxygen Delivery Method Nasal Cannula Nasal Cannula Oxygen Flow Rate 4 4 09/11/24 13:15 09/11/24 13:22 09/11/24 13:30 Temperature Pulse Rate 92 H Respiratory Rate Blood Pressure 139/78 Pulse Oximetry 97 Oxygen Delivery Method Nasal Cannula Nasal Cannula Oxygen Flow Rate 4 09/11/24 13:30 09/11/24 13:45 09/11/24 13:45 Temperature Pulse Rate 89 Respiratory Rate Blood Pressure 134/73 130/74 Pulse Oximetry 98 Oxygen Delivery Method Nasal Cannula Oxygen Flow Rate 4 09/11/24 14:00 09/11/24 14:00 09/11/24 14:15 Temperature Pulse Rate 91 H 89 Respiratory Rate Blood Pressure 145/76 H Pulse Oximetry 98 98 Oxygen Delivery Method Nasal Cannula Nasal Cannula Oxygen Flow Rate 4 4 09/11/24 14:15 Temperature Pulse Rate Respiratory Rate Blood Pressure 145/77 H Pulse Oximetry Oxygen Delivery Method Oxygen Flow Rate Oxygen Delivery Method Nasal Cannula Oxygen Flow Rate 4 Narrative Exam Narrative: Gen: NAD, sitting comfortably in bed, appears well HEENT: Sclera are anicteric, head is normocephalic and atraumatic, trachea is midline. CV: RRR, no JVD Resp: clear to auscultation bilaterally, equal chest wall movement bilaterally Abd: soft, mildly tender in epigastrium, no rebound or guarding, normoactive bowel sounds Ext: no edema, full range of motion Neuro: Cranial nerves II-XII grossly intact, no focal deficits Skin: No erythema or ecchymosis Objective Imaging CT scan - abdomen: My impression: My independent review of the CT of the abdomen shows duodenal diverticulitis without free perforation or free fluid. Labs 09/11/24 10:07 09/11/24 10:07 Labs: Laboratory Results - last 24 hr 09/11/24 09/11/24 10:07 10:35 WBC 6.9 RBC 4.70 Hgb 15.4 Hct 46.3 MCV 98.4 MCH 32.7 MCHC 33.2 RDW 16.3 H Plt Count 97 L Neut % (Auto) 56.0 Lymph % (Auto) 23.4 L [place] % (Auto) 11.6 Eos % (Auto) 7.8 H Baso % (Auto) 1.2 Neut # (Auto) 3800 Lymph # (Auto) 1600 [place] # (Auto) 800 Eos # (Auto) 500 H Baso # (Auto) 100 Sodium 136 L Potassium 4.7 Chloride 99 Carbon Dioxide 28 BUN 28 H Creatinine 1.59 H Estimated GFR 43 L BUN/Creatinine Ratio 17.6 Glucose 110 Calcium 9.1 Total Bilirubin 2.3 H AST 45 ALT 27 Alkaline Phosphatase 345 H Total Protein 8.7 H Albumin 4.5 Globulin 4.2 H Albumin/Globulin Ratio 1.1 Lipase 41 SARS-CoV-2 (PCR) Negative Influenza A (RT-PCR) Flu a negative Influenza B (RT-PCR) Flu b negative RSV (PCR) Negative PFSH Social History household members: spouse Tobacco & Substance Use Smoking Status: Former smoker Assessment & Plan Assessment and plan (1) Diverticulitis of duodenum: Status: Acute Assessment & Plan narrative: Patient does not have tachycardia, peritonitis, leukocytosis or fever. We will make him NPO until his diarrhea and abdominal pain resolve. Okay to take small sips and medications by mouth. IV antibiotics. No plan for urgent EGD. Time-Based Coding :: [TOTAL MINUTES] spent with patient and on the chart (including review of chart, obtaining history, exam, reviewing outside data, placing orders, documenting exam and treatment plan, and counseling patient) on [DATE]. PROFEE Charge Codes Inpatient or Observation consultation: [id number]
[2024-09-11] MEDS: PIPERACILLIN/TAZO 4.5 GM in SODIUM CHLORIDE 0.9% 100 ML IV (17:01)
--- NOTE | 2024-09-11 19:02 | PC.NURSE ---
Pt arrived to unit from ED on home level of O2, 3L NC. Pt experiencing nausea and diarrhea, provider notified and PRNs administered per order. Stool and urine samples ordered, but pt refusing collection throughout shift. Provided education about importance of lab collection. Family at bedside, updated.
[2024-09-11] MEDS: HYDROMORPHONE 0.5 MG INJ IV (20:16)
[2024-09-11] MEDS: GABAPENTIN 300 MG CAPSULE PO (20:17)
[2024-09-11] MEDS: PIPERACILLIN/TAZO 3.375 GM in SODIUM CHLORIDE 0.9% 100 ML IV (20:17)
--- NOTE | 2024-09-11 20:36 | PC.NURSE ---
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 Pt states i know my body very dam well and i know when my sugars go low.
[2024-09-12 04:00] VITALS: BP 157/93; PULSE 94; RESP 18; TEMP 36; O2SAT 95
[2024-09-12] MEDS: PIPERACILLIN/TAZO 3.375 GM in SODIUM CHLORIDE 0.9% 100 ML IV ×3 (04:44→20:35)
[2024-09-12] MEDS: ONDANSETRON 4 MG/2 ML INJ IV ×2 (04:44→05:58)
[2024-09-12 07:01] LABS: Amorphous Sediment Urine 1+; Bacteria Urine Occasional (0-1); Culture Indicated Urine Cult Not Indicated; RBC Urine None Seen (0-5/HPF); Squamous Epithelial Cell Urine 0-1 /HPF (0-5/HPF); Urine Volume 10mL (spun); WBC Urine None Seen (0-5/HPF)
[2024-09-12 07:44] LABS: Adenovirus F 40/41 Not Detected (Not Detect); Astrovirus Not Detected (Not Detect); Campylobacter Not Detected (Not Detect); Clostridium difficile toxin AB Detected (Not Detect); Cryptosporidium Not Detected (Not Detect); Cyclospora cayetanensis Not Detected (Not Detect); Entamoeba histolytica Not Detected (Not Detect); Enteroaggregative E.coli Not Detected (Not Detect); Enteropathogenic E.coli Not Detected (Not Detect); Enterotoxigenic E.coli It/st Not Detected (Not Detect); Giardia lamblia Not Detected (Not Detect); Norovirus GI/GII Not Detected (Not Detect); Plesiomonsa shigelloides Not Detected (Not Detect); Rotavirus A Not Detected (Not Detect); Salmonella Not Detected (Not Detect); Sapovirus Not Detected (Not Detect); Shiga-like toxin-prod E.coli Not Detected (Not Detect); Shigella/Enteroinvasive E.coli Not Detected (Not Detect); Vibrio Not Detected (Not Detect); Vibrio cholerae Not Detected (Not Detect); Yersinia enterocolitica Not Detected (Not Detect)
--- NOTE | 2024-09-12 08:05 | PM.PN.1 ---
Subjective Subjective Interval history: Summary: This is an 84-year-old male with idiopathic pulmonary fibrosis who presents with 3 weeks of abdominal pain, nausea and diarrhea. His CT scan shows duodenal diverticulum inflammation consistent with an atypical location for diverticulitis. He has no history of diverticulitis. He denies bloody diarrhea or hematemesis. He has no fevers. At baseline he is on 3 L nasal cannula oxygen for the last 8 years to treat his pulmonary fibrosis. His lipase level is normal at 41. Surgery will see him. He will be kept NPO until the pain diminishes and will be treated with Zosyn. S: He feels little bit better today, he denies any diarrhea today. He still has anorexia. He declines Lasix today. He knows that he is dying from pulmonary fibrosis he states. Exam Vital Signs (past 8 hours): - 09/12/24 04:00 Temperature 96.8 F L Pulse Rate 94 H Respiratory Rate 18 Blood Pressure 157/93 H Pulse Oximetry 95 Oxygen Flow Rate 2 Oxygen Delivery Method Nasal Cannula Oxygen Flow Rate 2 Narrative Exam Narrative: NAD, alert and oriented. Fluent speech. On oxygen, somewhat frail in appearance. Southern accent Lungs are clear, normal rate and effort. Heart is regular, no murmur gallop or rub. Abdomen is soft, non distended. Extremities are free of edema. Objective Labs 09/12/24 08:25 09/12/24 08:25 Labs: Laboratory Results - last 24 hr 09/11/24 09/11/24 09/12/24 10:07 10:35 04:17 WBC 6.9 RBC 4.70 Hgb 15.4 Hct 46.3 MCV 98.4 MCH 32.7 MCHC 33.2 RDW 16.3 H Plt Count 97 L Neut % (Auto) 56.0 Lymph % (Auto) 23.4 L [place] % (Auto) 11.6 Eos % (Auto) 7.8 H Baso % (Auto) 1.2 Neut # (Auto) 3800 Lymph # (Auto) 1600 [place] # (Auto) 800 Eos # (Auto) 500 H Baso # (Auto) 100 Sodium 136 L Potassium 4.7 Chloride 99 Carbon Dioxide 28 BUN 28 H Creatinine 1.59 H Estimated GFR 43 L BUN/Creatinine Ratio 17.6 Glucose 110 Calcium 9.1 Total Bilirubin 2.3 H AST 45 ALT 27 Alkaline Phosphatase 345 H Total Protein 8.7 H Albumin 4.5 Globulin 4.2 H Albumin/Globulin Ratio 1.1 Lipase 41 Urine RBC None seen Urine WBC None seen Ur Squamous Epith Cells 0-1 /hpf Amorphous Sediment 1+ Urine Bacteria Occasional (0-1) Ur Culture Indicated? Cult not indicated Vol Urine Centrifuged 10ml (spun) Stl C. cayetanensis PCR Stool Rotavirus (PCR) Stool Adenovirus (PCR) Stool Astrovirus (PCR) Stool Cryptosporidium PCR Stl E.coli Shiga Tox PCR St Sh/Enteroin Ecoli PCR Stool E coli O157 PCR Stl Enterotoxigenic E PCR Stool EPEC (PCR) Stl E. histolytica PCR Stool Giardia Lamblia PCR Stool Sapovirus (PCR) Stl P. shigelloides PCR St Y.enterocolitica PCR Stool Vibrio (PCR) Stl Vibrio cholerae PCR Stl Enteroaggr Ecoli PCR Stl Norovirus GI/GII PCR Campylobacter (PCR) C. difficile Tox (PCR) SARS-CoV-2 (PCR) Negative Influenza A (RT-PCR) Flu a negative Influenza B (RT-PCR) Flu b negative RSV (PCR) Negative Salmonella (PCR) 09/12/24 09/12/24 05:58 05:58 WBC RBC Hgb Hct MCV MCH MCHC RDW Plt Count Neut % (Auto) Lymph % (Auto) [place] % (Auto) Eos % (Auto) Baso % (Auto) Neut # (Auto) Lymph # (Auto) [place] # (Auto) Eos # (Auto) Baso # (Auto) Sodium Potassium Chloride Carbon Dioxide BUN Creatinine Estimated GFR BUN/Creatinine Ratio Glucose Calcium Total Bilirubin AST ALT Alkaline Phosphatase Total Protein Albumin Globulin Albumin/Globulin Ratio Lipase Urine RBC Urine WBC Ur Squamous Epith Cells Amorphous Sediment Urine Bacteria Ur Culture Indicated? Vol Urine Centrifuged Stl C. cayetanensis PCR Not detected Stool Rotavirus (PCR) Not detected Stool Adenovirus (PCR) Not detected Stool Astrovirus (PCR) Not detected Stool Cryptosporidium PCR Not detected Stl E.coli Shiga Tox PCR Not detected St Sh/Enteroin Ecoli PCR Not detected Stool E coli O157 PCR Double End [place] Operator Stl Enterotoxigenic E PCR Not detected Stool EPEC (PCR) Not detected Stl E. histolytica PCR Not detected Stool Giardia Lamblia PCR Not detected Stool Sapovirus (PCR) Not detected Stl P. shigelloides PCR Not detected St Y.enterocolitica PCR Not detected Stool Vibrio (PCR) Not detected Stl Vibrio cholerae PCR Not detected Stl Enteroaggr Ecoli PCR Not detected Stl Norovirus GI/GII PCR Not detected Campylobacter (PCR) Not detected C. difficile Tox (PCR) Cancelled Detected H SARS-CoV-2 (PCR) Influenza A (RT-PCR) Influenza B (RT-PCR) RSV (PCR) Salmonella (PCR) Not detected PFS Medical History IPF (idiopathic pulmonary fibrosis) CAD (coronary artery disease) Surgical History Hx of CABG Social History household members: spouse Smoking Status: Former smoker Assessment & Plan Assessment & Plan narrative: This is an 84-year-old male with idiopathic pulmonary fibrosis who presents with 3 weeks of abdominal pain, nausea and diarrhea. His CT scan shows duodenal diverticulum inflammation consistent with an atypical location for diverticulitis. 1. Small-bowel diverticulitis, present on admission and improving. -duodenal diverticular inflammation unlikely to be pancreatitis with normal lipase. -High risk for perforation/bleeding -surgery following, NPO, IV fluid support, Dilaudid IV as needed -IV Zosyn, IV Protonix 2. Possible C diff toxin colitis, present on admission and active. 3.Type 2 diabetes mellitus, present on admission and stable. -correctional lispro scale low-dose with glargine on hold until able to take nutrition by mouth. 4. Hypertension, present on admission and stable. -continue valsartan and hold furosemide, resume as needed 5. Hypothyroidism, present on admission and stable. -continue levothyroxine 6. Pulmonary fibrosis, present on admission and active. 7. Chronic hypoxic respiratory failure, present on admission and active. Plan: -continue antibiotics -stop Lovenox due to a decreasing platelet count. -vancomycin 125 mg p.o. q.i.d. and follow 2nd stage of C diff toxin PCR assay. DVT prevention-enoxaparin Time-Based Coding :: [TOTAL MINUTES] spent with patient and on the chart (including review of chart, obtaining history, exam, reviewing outside data, placing orders, documenting exam and treatment plan, and counseling patient) on [DATE].
[2024-09-12 08:36] LABS: Add Manual Diff / Slide Review NO; Basophils Absolute Auto 100 /uL (0-100); Basophils Percent Auto 1.1 % (0-2); Eosinophils Absolute Auto 100 /uL (0-450); Eosinophils Percent Auto 1.3 % (2-4); Hematocrit 48.3 % (41-53); Hemoglobin 15.5 g/dL (13.5-17.5); Lymphocytes Absolute Auto 1200 /uL (1100-4500); Lymphocytes Percent Auto 14.4 % (25-40); Mean Corpuscular Hemoglobin 32.4 PG (26-34); Mean Corpuscular Volume 101.3 fL (80-100); Monocytes Absolute Auto 800 /uL (0-900); Monocytes Percent Auto 9.6 % (3-14); Neutrophils Absolute Auto 6000 /uL (1500-7000); Neutrophils Percent Auto 73.6 % (50-75); Platelet Count 87 X10^3/uL (150-400); Red Blood Cell Count 4.77 X10^6/uL (4.5-5.9); Red Cell Distribution Width 17.8 % (11.6-14.8); White Blood Cell Count 8.1 X10^3/uL (4.5-11.0)
[2024-09-12 08:48] LABS: BUN Creatinine Ratio 18.9 (6-22); Blood Urea Nitrogen 36 mg/dL (9-20); Calcium 8.3 mg/dL (8.4-10.2); Carbon Dioxide 13 mmol/L (22-32); Chloride 107 mmol/L (98-107); Estimated Glomerular Filt Rate 35 mL/min (>60); Glucose 118 mg/dL (80-110); HEMOLYSIS < 15 (0-50); Potassium 5.2 mmol/L (3.4-5.1); Sodium 140 mmol/L (137-145)
[2024-09-12] MEDS: ENOXAPARIN 30 MG/0.3 ML SYRINGE SUBCUT (08:55)
[2024-09-12] MEDS: PANTOPRAZOLE 40 MG VIAL IV ×2 (08:55→20:35)
[2024-09-12] MEDS: GABAPENTIN 300 MG CAPSULE PO ×3 (08:55→20:36)
[2024-09-12] MEDS: VALSARTAN 80 MG TABLET 40 MG PO (08:55)
[2024-09-12 09:23] VITALS: BP 143/78; PULSE 99; RESP 25; TEMP 36.2; O2SAT 89
[2024-09-12] MEDS: VANCOMYCIN 125 MG CAPSULE PO ×3 (10:12→22:08)
--- NOTE | 2024-09-12 10:30 | DIET.CONS ---
Dietary Consultation Note Admission Date: 09/11/2024 13:19 Assessment: 84 y M admitted for N/V for 1 month found to have diverticulitis of duodenum and c. diff. RD screened for low MNA. Met with pt and family at bedside. Reports significant decrease in PO intakes in last 4 weeks with only being able to tolerate a rice pudding in the morning and another pudding, Popsicle, or small portion of rice in last 4 weeks. Additionally before then, family notes a decrease in appetite for last 2 months, i.e reduced portions at meals. Report suspect patient has lost over 20 lb in this time. NFPE not completed. Pt actively vomiting, RN aware and present in room. Ht: 162.56 cm Wt: 56.699 kg BMI: 21.4 UBW: 63.64 kg per family report 3-4 months ago (-11% weight loss within 3-4 months, severe) Last BM: 09/12/24 (09/12/24 06:00) MNA: 8 Chepe Score: 21 Diet: 09/11/24 17:02 NPO Diet Diet Modifications: NPO Type: NPO except for Meds Nutrition Percent Meal Consumed refused dinner just want popsicle 09/11/24 18:00 Labs: RBC 4.77 X10^6/uL (4.5-5.9) 09/12/24 08:25 Hgb 15.5 g/dL (13.5-17.5) 09/12/24 08:25 Hct 48.3 % (41-53) 09/12/24 08:25 Creatinine 1.90 mg/dL (0.66-1.25) H 09/12/24 08:25 Nutrition Diagnosis: Severe acute Protein Calorie Malnutrition r/t alterations of the GI tract structure/function as evidenced by diverticulitis and c. diff, 11% weight loss within 4 months (severe), <50% of estimated energy intake for 3-4 weeks per diet recall (severe), BMI underweight for age (21.4) Interventions: 1. Pt NPO, will monitor closely for diet advancement EER: 1700 kcals (30 kcals per kg per BMI) 80 g protein (1.5 g/kg per PCM) Monitoring/Evaluations: diet Electronically Signed by: Allyson Palmer 09/12/24 10:[address] [id number]
--- NOTE | 2024-09-12 10:49 | PM.PN.IH.1 ---
Subjective Subjective Date Patient Seen: 09/12/24 Time Patient Seen: 08:50 Interval history: Patient is still having some abdominal pain and diarrhea. C diff toxin is positive. Exam Vital Signs (past 8 hours): - 09/12/24 04:00 09/12/24 09:23 Temperature 96.8 F L 97.2 F L Pulse Rate 94 H 99 H Respiratory Rate 18 25 H Blood Pressure 157/93 H 143/78 H Pulse Oximetry 95 89 L Oxygen Flow Rate 2 3 Oxygen Delivery Method Nasal Cannula Oxygen Flow Rate 3 Narrative Exam Narrative: Gen: NAD, sitting comfortably in bed, appears well HEENT: Sclera are anicteric, head is normocephalic and atraumatic, trachea is midline. CV: RRR, no JVD Resp: clear to auscultation bilaterally, equal chest wall movement bilaterally Abd: soft, mildly tender diffusely, no rebound or guarding, normoactive bowel sounds Ext: no edema, full range of motion Neuro: Cranial nerves II-XII grossly intact, no focal deficits Skin: No erythema or ecchymosis Objective Labs 09/12/24 08:25 09/12/24 08:25 Labs: Laboratory Results - last 24 hr 09/11/24 09/12/24 09/12/24 10:35 04:17 05:58 WBC RBC Hgb Hct MCV MCH MCHC RDW Plt Count Neut % (Auto) Lymph % (Auto) [place] % (Auto) Eos % (Auto) Baso % (Auto) Neut # (Auto) Lymph # (Auto) [place] # (Auto) Eos # (Auto) Baso # (Auto) Sodium Potassium Chloride Carbon Dioxide BUN Creatinine Estimated GFR BUN/Creatinine Ratio Glucose Calcium Urine RBC None seen Urine WBC None seen Ur Squamous Epith Cells 0-1 /hpf Amorphous Sediment 1+ Urine Bacteria Occasional (0-1) Ur Culture Indicated? Cult not indicated Vol Urine Centrifuged 10ml (spun) Stl C. cayetanensis PCR Not detected Stool Rotavirus (PCR) Not detected Stool Adenovirus (PCR) Not detected Stool Astrovirus (PCR) Not detected Stool Cryptosporidium PCR Not detected Stl E.coli Shiga Tox PCR Not detected St Sh/Enteroin Ecoli PCR Not detected Stool E coli O157 PCR Metal Dealer Stl Enterotoxigenic E PCR Not detected Stool EPEC (PCR) Not detected Stl E. histolytica PCR Not detected Stool Giardia Lamblia PCR Not detected Stool Sapovirus (PCR) Not detected Stl P. shigelloides PCR Not detected St Y.enterocolitica PCR Not detected Stool Vibrio (PCR) Not detected Stl Vibrio cholerae PCR Not detected Stl Enteroaggr Ecoli PCR Not detected Stl Norovirus GI/GII PCR Not detected Campylobacter (PCR) Not detected C. difficile Tox (PCR) Cancelled SARS-CoV-2 (PCR) Negative Influenza A (RT-PCR) Flu a negative Influenza B (RT-PCR) Flu b negative RSV (PCR) Negative Salmonella (PCR) 09/12/24 09/12/24 05:58 08:25 WBC 8.1 RBC 4.77 Hgb 15.5 Hct 48.3 MCV 101.3 H MCH 32.4 MCHC 32.0 RDW 17.8 H Plt Count 87 L Neut % (Auto) 73.6 Lymph % (Auto) 14.4 L [place] % (Auto) 9.6 Eos % (Auto) 1.3 L Baso % (Auto) 1.1 Neut # (Auto) 6000 Lymph # (Auto) 1200 [place] # (Auto) 800 Eos # (Auto) 100 Baso # (Auto) 100 Sodium 140 Potassium 5.2 H Chloride 107 Carbon Dioxide 13 L BUN 36 H Creatinine 1.90 H Estimated GFR 35 L BUN/Creatinine Ratio 18.9 Glucose 118 H Calcium 8.3 L Urine RBC Urine WBC Ur Squamous Epith Cells Amorphous Sediment Urine Bacteria Ur Culture Indicated? Vol Urine Centrifuged Stl C. cayetanensis PCR Stool Rotavirus (PCR) Stool Adenovirus (PCR) Stool Astrovirus (PCR) Stool Cryptosporidium PCR Stl E.coli Shiga Tox PCR St Sh/Enteroin Ecoli PCR Stool E coli O157 PCR Stl Enterotoxigenic E PCR Stool EPEC (PCR) Stl E. histolytica PCR Stool Giardia Lamblia PCR Stool Sapovirus (PCR) Stl P. shigelloides PCR St Y.enterocolitica PCR Stool Vibrio (PCR) Stl Vibrio cholerae PCR Stl Enteroaggr Ecoli PCR Stl Norovirus GI/GII PCR Campylobacter (PCR) C. difficile Tox (PCR) Detected H SARS-CoV-2 (PCR) Influenza A (RT-PCR) Influenza B (RT-PCR) RSV (PCR) Salmonella (PCR) Not detected PFSH Medical History (Updated 09/12/24 @ 10:50 by Lance Finley MD) IPF (idiopathic pulmonary fibrosis) CAD (coronary artery disease) Surgical History (Updated 09/11/24 @ 18:11 by Keamr Berg MD) Hx of CABG Social History household members: spouse Smoking Status: Former smoker Assessment & Plan Assessment and plan (1) Diverticulitis of duodenum: Status: Acute Plan: Patient states his pain is maybe a little better than yesterday, no tachycardia. Still with some diarrhea. (2) C. difficile diarrhea: Status: Acute Plan: We will alter antibiotic regimen to include treatment for C diff. Time-Based Coding :: [TOTAL MINUTES] spent with patient and on the chart (including review of chart, obtaining history, exam, reviewing outside data, placing orders, documenting exam and treatment plan, and counseling patient) on [DATE]. PROFEE Adobe Cq Developer Document charge(s): Yes Charge Codes Subsequent inpatient/observation care: [id number]
--- NOTE | 2024-09-12 12:06 | DI.RAD.S_ITS ---
PROCEDURE: XR CHEST 1V INDICATIONS: Dyspnea TECHNIQUE: One view of the chest was acquired. COMPARISON: None. FINDINGS: Surgical changes and devices: Median sternotomy wires and mediastinal surgical clips Lungs and pleura: No pneumothorax. Probable small bilateral pleural effusions. No focal dense airspace consolidation Mediastinum: Mediastinal contours appear normal. Heart size is borderline enlarged. Bones and chest wall: No suspicious bony lesions. Overlying soft tissues appear unremarkable. IMPRESSION: Probable small bilateral pleural effusions. No focal dense airspace consolidation. Approved by: Kelly Greenwood M.D.,Ph.D. on 09/12/2024 at 13:26
--- NOTE | 2024-09-12 12:17 | PC.NURSE ---
1210 pt c/o SOB, sitting at edge of bed. sPO2 83% on 3L. Pt stated that he is usually on 3L at home and that he experiences these periods of SOB due to his pulmonary fibrosis. Pt has increased WOB. Bilateral base crackles in lungs. Switched out pulse oximetry and increased oxygen to 3.5 L, at which point sPO2 increased to 93%. Notified Dr. Rodarte, and a CXR was ordered.
--- NOTE | 2024-09-12 14:30 | PC.NURSE ---
PO LASIX REFUSED,DR ISBELL IN ROOM ,OK WITH PATIENT NOT TAKING
[2024-09-12 17:00] VITALS: BP 140/71; PULSE 94; RESP 20; TEMP 36.3; O2SAT 97
[2024-09-12 19:55] VITALS: BP 125/70; PULSE 81; RESP 16; TEMP 36.6; O2SAT 100
[2024-09-12 23:43] VITALS: BP 103/63; PULSE 79; RESP 16; TEMP 36.1; O2SAT 97
--- NOTE | 2024-09-13 02:42 | PC.NURSE ---
ore trimmer: Patient declining blood sugar checks. Education given on importance of monitoring blood sugar, patient verbalized understanding although declines. Notified MD Emerson.
[2024-09-13] MEDS: PIPERACILLIN/TAZO 3.375 GM in SODIUM CHLORIDE 0.9% 100 ML IV (04:03)
[2024-09-13] MEDS: VANCOMYCIN 125 MG CAPSULE PO ×4 (04:15→22:11)
[2024-09-13 05:20] LABS: Hemoglobin A1C% w Est Avg Glu 6.5 % (4.0-6.0)
[2024-09-13] MEDS: LEVOTHYROXINE 75 MCG, LEVOTHYROXINE 100 MCG 175 MCG PO (06:39)
[2024-09-13 08:16] VITALS: BP 104/71; PULSE 80; RESP 16; TEMP 35.9; O2SAT 100
--- NOTE | 2024-09-13 08:41 | P.PN_ITS ---
Subjective Subjective Date Patient Seen: 09/13/24 Time Patient Seen: 08:42 Interval history: PHD#3 Cdiff colitis, with diarhea, and duodenal diverticulitis, NO leukocytosis, Pain in his upper abdomen, is ALMOST completely gone, WILL ORDER him mechanically soft diet, and protein suppllements, and will stop the Zosyn, and continue PO Vancomycin. Exam Vital Signs (past 8 hours): - 09/13/24 08:16 Temperature 96.7 F L Pulse Rate 80 Respiratory Rate 16 Blood Pressure 104/71 Pulse Oximetry 100 Oxygen Flow Rate 3 Oxygen Delivery Method Nasal Cannula Oxygen Flow Rate 3 Narrative Exam Narrative: Upper abdomen soft, NON TENDER and feeling MUCH better. Objective Labs 09/12/24 08:25 09/12/24 08:25 Labs: Laboratory Results - last 24 hr 09/12/24 09/13/24 08:25 04:24 WBC 8.1 RBC 4.77 Hgb 15.5 Hct 48.3 MCV 101.3 H MCH 32.4 MCHC 32.0 RDW 17.8 H Plt Count 87 L Neut % (Auto) 73.6 Lymph % (Auto) 14.4 L [place] % (Auto) 9.6 Eos % (Auto) 1.3 L Baso % (Auto) 1.1 Neut # (Auto) 6000 Lymph # (Auto) 1200 [place] # (Auto) 800 Eos # (Auto) 100 Baso # (Auto) 100 Sodium 140 Potassium 5.2 H Chloride 107 Carbon Dioxide 13 L BUN 36 H Creatinine 1.90 H Estimated GFR 35 L BUN/Creatinine Ratio 18.9 Glucose 118 H Hemoglobin A1c 6.5 H Calcium 8.3 L PFSH Medical History IPF (idiopathic pulmonary fibrosis) CAD (coronary artery disease) Surgical History Hx of CABG Social History household members: spouse Smoking Status: Former smoker Assessment & Plan Assessment and plan (1) C. difficile diarrhea: Problem details: PHD#3 C-diff colitis, with diarrhea, and duodenal diverticulitis, NO leukocytosis, Pain in his upper abdomen, is ALMOST completely gone, WILL ORDER him mechanically soft diet, and protein supplements, and will stop the Zosyn, and continue PO Vancomycin. Status: Acute (2) Diverticulitis of duodenum: Status: Acute Time-Based Coding :: [TOTAL MINUTES] spent with patient and on the chart (including review of chart, obtaining history, exam, reviewing outside data, placing orders, documenting exam and treatment plan, and counseling patient) on [DATE]. PROFEE Color Depositing Machine Tender Document charge(s): Yes
--- NOTE | 2024-09-13 09:22 | PM.PN.1 ---
Subjective Subjective Interval history: Summary: This is an 84-year-old male with idiopathic pulmonary fibrosis who presents with 3 weeks of abdominal pain, nausea and diarrhea. His CT scan shows duodenal diverticulum inflammation consistent with an atypical location for diverticulitis. He has no history of diverticulitis. He denies bloody diarrhea or hematemesis. He has no fevers. At baseline he is on 3 L nasal cannula oxygen for the last 8 years to treat his pulmonary fibrosis. His lipase level is normal at 41. Surgery he was following. He was improving on antibiotics. He did have intermittent diarrhea and his C diff toxin was positive. He was started on vancomycin and September 12. S: He was feeling better today, little or no diarrhea and much better abdominal pain. Surgery did give him a general diet today. He would like to try to return home, [place] fel[place], Monday if he continues to improve. Exam Vital Signs (past 8 hours): - 09/13/24 08:16 Temperature 96.7 F L Pulse Rate 80 Respiratory Rate 16 Blood Pressure 104/71 Pulse Oximetry 100 Oxygen Flow Rate 3 Oxygen Delivery Method Nasal Cannula Oxygen Flow Rate 3 Narrative Exam Narrative: NAD, alert and oriented. Fluent speech. On 3 L of oxygen. Lungs are clear, normal rate and effort. Heart is regular, no murmur gallop or rub. Abdomen is soft, non distended. Extremities are free of edema. Objective Labs 09/12/24 08:25 09/12/24 08:25 Labs: Laboratory Results - last 24 hr 09/13/24 04:24 Hemoglobin A1c 6.5 H [facility] Medical History IPF (idiopathic pulmonary fibrosis) CAD (coronary artery disease) Surgical History Hx of CABG Social History household members: spouse Smoking Status: Former smoker Assessment & Plan Assessment & Plan narrative: This is an 84-year-old male with idiopathic pulmonary fibrosis who presents with 3 weeks of abdominal pain, nausea and diarrhea. His CT scan shows duodenal diverticulum inflammation consistent with an atypical location for diverticulitis. 1. Small-bowel diverticulitis, present on admission and improving. -IV Zosyn, IV Protonix 2. Possible C diff toxin colitis, present on admission and improving. 3.Type 2 diabetes mellitus, present on admission and stable. -correctional lispro scale low-dose with glargine on hold until able to take nutrition by mouth. 4. Hypertension, present on admission and stable. -continue valsartan and hold furosemide, resume as needed 5. Hypothyroidism, present on admission and stable. -continue levothyroxine 6. Pulmonary fibrosis, present on admission and active. 7. Chronic hypoxic respiratory failure, present on admission and active. Plan: -continue antibiotics (Zosyn), anticipate home on Augmentin in about 1 day. -stop Lovenox due to a decreasing platelet count. -vancomycin 125 mg p.o. q.i.d., 10 day course. LETITIA: Orestes felipe on September 14 if improved. Time-Based Coding :: [TOTAL MINUTES] spent with patient and on the chart (including review of chart, obtaining history, exam, reviewing outside data, placing orders, documenting exam and treatment plan, and counseling patient) on [DATE].
[2024-09-13] MEDS: VALSARTAN 80 MG TABLET 40 MG PO (09:44)
[2024-09-13] MEDS: GABAPENTIN 300 MG CAPSULE PO ×3 (09:44→20:19)
--- NOTE | 2024-09-13 12:59 | DIET.PN1 ---
Dietary Progress Note Assessment: RD f/u Diet advanced per surgery, pt tolerated 100% breakfast this morning. ONS plus added TID with meals. Ht: 162.56 cm Wt: 56.699 kg BMI: 21.4 Last BM: 09/13/24 (09/13/24 04:20) MNA: 8 Chepe Score: 21 Diet: 09/13/24 Lunch General (Regular) Diet Diet Modifications: Give prtein shakes (25 gm prot) WITH EVERY MEALS. Food Texture: Level 7 - Regular Liquid Consistency: Level 0 - Thin Nutrition Percent Meal Consumed 100% 09/13/24 10:00 Percent Meal Consumed refused dinner just want popsicle 09/11/24 18:00 Labs: RBC 4.77 X10^6/uL (4.5-5.9) 09/12/24 08:25 Hgb 15.5 g/dL (13.5-17.5) 09/12/24 08:25 Hct 48.3 % (41-53) 09/12/24 08:25 Creatinine 1.90 mg/dL (0.66-1.25) H 09/12/24 08:25 Hemoglobin A1c 6.5 % (4.0-6.0) H 09/13/24 04:24 Electronically Signed by: Allyson Palmer 09/13/24 12:59 Clinical Dietitian [address] [address]
[2024-09-13 16:00] VITALS: BP 121/58; PULSE 94; RESP 22; TEMP 36.2; O2SAT 91
--- NOTE | 2024-09-13 16:14 | CM.DANOTE ---
Initial DCP Assessment Note Pt is a 84 yo male, resident at [facility] in [place], presents with weeks of abd pain, nausea, diarrhea. Admitted for management of diverticulitis and C diff toxin , started on abx. PCP: Ria Yang Payer: [facility] MCR Reviewed chart, pt discussed in multidisciplinary rounds this morning. Dr Rodarte anticipating patient could return to [facility] tomorrow 09/14 if he continues to improve. This HELIUM ARC WELDER LM for Wendy at [facility] [phone] updating that patient may be ready for return home tomorrow. According to RN, patient is A+Ox4 and moves with SBA in room. Supportive family in the room this afternoon, unforteunetly ocould not meet with patient/family due to caseload demands. No barriers identified at this time to patient's safe discharge home to [facility] w/family to assist. CM team will plan to follow clinical course closely for any coordination needs that may arise. NICOLAS Cancino Discharge Planning/Care Management CM Discharge Assessment Start: 09/13/24 16:10 Freq: Status: Active Protocol: Document 09/13/24 16:11 NICOLE (Rec: 09/13/24 16:13 NICOLE [id number]) Discharge Planning Assessment Assigned Channeling Machine Runner NICOLAS Tubbs DPOA/Assigned Designee Name Nandini Rankin, spouse Contact Information [phone] Advance Directives? Yes Advance Directives on File No History Provided By Medical Record Prior Living Arrangements Prison Facility Household Members spouse Type of transporation used prior to Relies on Others admit Facility Name Admitted From: [facility] Willing to Return to Facility? Yes Independent with ADL's Yes: SBA Is patient alert and oriented? Yes Needs Assistance With Home Chores / Shopping Barriers to Discharge No Comment Return to [facility] with family Discharge Plan Assisted Living Facility Transportation Arrangement Family Referrals Initiated None needed
[2024-09-13 19:35] VITALS: O2SAT 93
[2024-09-13 20:00] VITALS: BP 104/62; PULSE 79; RESP 18; TEMP 36.5; O2SAT 96
[2024-09-13] MEDS: PANTOPRAZOLE DR 40 MG TABLET PO (20:19)
[2024-09-13 22:11] LABS: Pancreatic Elastase, Fecal 156 (>200)
[2024-09-14] MEDS: VANCOMYCIN 125 MG CAPSULE PO ×2 (04:49→10:07)
[2024-09-14] MEDS: LEVOTHYROXINE 75 MCG, LEVOTHYROXINE 100 MCG 175 MCG PO (05:48)
[2024-09-14] MEDS: GABAPENTIN 300 MG CAPSULE PO (08:18)
[2024-09-14] MEDS: SODIUM CHLORIDE 0.9% FLUSH 10 ML IV (08:19)
[2024-09-14] MEDS: VALSARTAN 80 MG TABLET 40 MG PO (08:19)
[2024-09-14] MEDS: PANTOPRAZOLE DR 40 MG TABLET PO (08:19)
[2024-09-14 10:00] VITALS: BP 119/62; PULSE 75; RESP 24; TEMP 35.9; O2SAT 95
[2024-09-14 11:09] LABS: C difficie Toxins A and B, EIA Negative (Negative)
--- NOTE | 2024-09-14 12:43 | P.PN_ITS ---
Subjective Subjective Date Patient Seen: 09/14/24 Time Patient Seen: 12:43 Exam Vital Signs (past 8 hours): - 09/14/24 07:00 09/14/24 10:00 Temperature 96.7 F L Pulse Rate 75 Respiratory Rate 24 Blood Pressure 119/62 Pulse Oximetry 95 Oxygen Delivery Method Nasal Cannula Oxygen Flow Rate 4 Fraction of Inspired Oxygen 32 SaO2/FiO2 Ratio 290 Oxygen Delivery Method Nasal Cannula Oxygen Flow Rate 4 Narrative Exam Narrative: His abdomen is SOF, NON TENDER, non distended, positive bowel sounds, and diarrhea has resolved, and ready to go home, ON PO VANCOMYCIN. Objective Labs 09/12/24 08:25 09/12/24 08:25 Labs: Laboratory Results - last 24 hr 09/12/24 05:58 Stool Pancreat Elastase 156 L C. diff Toxin A&B (EIA) Negative [facility] Medical History IPF (idiopathic pulmonary fibrosis) CAD (coronary artery disease) Surgical History Hx of CABG Social History household members: spouse Smoking Status: Former smoker Assessment & Plan Post-op Postoperative Procedures: His abdomen is SOFT, MILDLY TENDER LLQ, non distended, positive bowel sounds, and diarrhea has resolved, and ready to go home, ON PO VANCOMYCIN.
--- NOTE | 2024-09-14 14:26 | CM.DPNOTE ---
SPOKE WITH , PATIENT, AND KEE @ [facility] RE: PATIENT RETURN TO [place] WITH CDIFF. KEE ADVISED PATIENT CAN RETURN LONG HE IS AWARE HE WILL NEED TO REMAIN IN HIS ROOM UNTIL HIS COURSE OF ANTIBIOTICS ARE FINISHED. UPDATED PATIENT AND MD, PATIENT VERY READY TO D/C. DR. ADAM TO DISCHARGE TODAY. NO OTHER NEEDS EXPRESSED, UPDATED DTR AND SHE WILL TRANSPORT AT D/C. NICOLAS MCGRAW
--- NOTE | 2024-09-14 15:00 | PC.NURSE ---
D/c instructions reviewed with pt. IV removed. Pt stated he understood precautions to take once he returns to [facility]. Pt given printed prescriptions signed by Dr. Levi. Pt exited via w/c with daughter and [employer] APPRAISER to private vehicle.
[2024-09-18 20:39] LABS: Calprotectin, Stool 278 ug/g (0-120)
--- NOTE | 2024-09-20 12:36 | P.DS_ITS ---
History of Present Illness History of Present Illness Chief complaint: N/V 1 month Narrative: Per H&P: This is an 84-year-old male with idiopathic pulmonary fibrosis who presents with 3 weeks of abdominal pain, nausea and diarrhea. His CT scan shows duodenal diverticulum inflammation consistent with an atypical location for diverticulitis. He has no history of diverticulitis. He denies bloody diarrhea or hematemesis. He has no fevers. At baseline he is on 3 L nasal cannula oxygen for the last 8 years to treat his pulmonary fibrosis. His lipase level is normal at 41. Surgery will see him. He will be kept NPO until the pain diminishes and will be treated with Zosyn. Discharge Providers Provider Date of admission: 09/11/24 13:19 Discharge Date: 09/14/24 Primary care physician: Ria Yang MD Consults: 09/12/24 10:18 Consult to General Surgery Routine Comment: Consulting Provider: Lance Finley Reason for consultation: diverticulitis Has provider been notified: Yes Discharge provider: Charu Levi MD Summary Hospital Course Discharge Diagnosis: 1. Small-bowel diverticulitis, treated and resolved. 2. Possible C diff toxin colitis 3.Type 2 diabetes mellitus,chronic, stable. 4. Hypertension, chronic, stable. 5. Hypothyroidism,chronic, stable. 6. Pulmonary fibrosis,chronic, at baseline 7. Transient Acute on chronic hypoxic respiratory failure, secondary to aspiration of water, improved 8. Severe acute PCM Hospital Course: Pt was admitted w/ a several week hx of abdominal pain, nausea and diarrhea. CT scan showed possible diverticulitis of a single diverticulum. Surgery consulted and recommended tx w/abx. C diff toxin was also sent and returned positive. He was placed on po vancomycin. During his hospitalization, he completed tx for the diverticulitis. He also had improvement in his diarrhea, cramping/pain and nausea. He did have an episode of aspirating water the night before d/c. He did transiently need higher supplemental O2 via NC for the overnight period and into the next morning. However, he did not develop any signs/sxs of respiratory distress/pneumonia. His O2 need was improving and approaching baseline at discharge. Pt is d/c'd in stable condition. Exam Vital Signs (past 8 hours): Fraction of Inspired Oxygen 32 SaO2/FiO2 Ratio 290 Oxygen Delivery Method Nasal Cannula Oxygen Flow Rate 4 Narrative Exam Narrative: GEN: Elderly male,dressed, walking around hospital room, Alert and oriented x 3, NAD HEENT:NC, Face symmetric CHEST: Respiratory excursions symmetric, coarse w/ bibasilar crackles CV: RRR, no M/R/G ABD: Soft, NT/ND, BT present in all 4 quadrants, no organomegaly or masses EXTR: warm, well perfused, no C/C/E SKIN: warm and dry, no rash NEURO: Alert and oriented x 3, nonfocal Objective Labs 09/12/24 08:25 09/12/24 08:25 [facility] Medical History IPF (idiopathic pulmonary fibrosis) CAD (coronary artery disease) Surgical History Hx of CABG Social History household members: spouse Smoking Status: Former smoker Discharge Plan Discharge Plan Patient Disposition: Assisted Living Other facility: [facility] Under care of provider: Ria Yang Provider Discharge Comment: 1) Pt will remain in precautions for c diff colitis until BOTH stools are formed AND he has completed vancomycin 2) Recommend probiotics x 4 weeks Return to the ED for: Fevers/chills/inability to hold down food/fluids, increased abdominal pain, recurrent diarrhea Discharge orders & Medications Discharge Orders: Discharge (Order); Ordered 09/14/24 Ordered By: Charu Levi Prescriptions: New vancomycin 125 mg Capsule 125 mg PO Q6H Qty: 32 0RF Saccharomyces boulardii [Florastor] 250 mg capsule 500 mg PO BID Qty: 120 0RF Continued furosemide 40 mg tablet 40 mg PO QAM levothyroxine 175 mcg tablet 175 mcg PO DAILY ondansetron HCl 4 mg tablet 4 mg PO BID PRN (Reason: Nausea And Vomiting) Patient Comments: [NO ORIGINAL SIG] gabapentin 300 mg capsule 300 mg PO 3XD valsartan 40 mg tablet 40 mg PO DAILY tadalafil 20 mg Tablet 20 mg PO DAILY insulin glargine [Lantus Solostar U-100 Insulin] 100 unit/mL (3 mL) insulin pen 10 unit SUBCUT BID Patient Comments: [NO ORIGINAL SIG] Follow up/Referrals: Ria Yang MD [Primary Care Provider] - Diet/Activity/Treatments Diet: Diet as Tolerated and Regular Liquid consistency: Normal/Thin Food texture: Regular Activity: As tolerated Oxygen: 3-4 LPM continuous Visit Report/Discharge Packet Instructions: DI for Clostridioides difficile Infection Stand Alone Forms: Patient Portal/API, Stroke Signs & Symptoms Discharge Data Primary Care Provider: Ria Yang
--- NOTE | 2024-09-27 10:27 | PC.NURSE ---
late entry- per RN 09/11 @5449 dose of antibiotic completed after admitted upstairs at 1530
== END 2024-09-14 15:02 | DRG 391 ==
LOC: ED 13:19 → AC 14:36
PROVIDERS: Surgery; Admitting Provider Family Medicine; Emergency Provider Emergency Medicine; PCP Internal Medicine; Referring Provider Emergency Medicine; Visit Provider Family Medicine
DX: K57.12 Diverticulitis of small intestine without perforation or abscess without bleeding (principal); E43 Unspecified severe protein-calorie malnutrition; J96.21 Acute and chronic respiratory failure with hypoxia; A04.72 Enterocolitis due to Clostridium difficile, not specified as recurrent; J84.112 Idiopathic pulmonary fibrosis; I25.10 Atherosclerotic heart disease of native coronary artery without angina pectoris; E11.9 Type 2 diabetes mellitus without complications; I10 Essential (primary) hypertension; T17.998A Other foreign object in respiratory tract, part unspecified causing other injury, initial encounter; W44.8XXA Other foreign body entering into or through a natural orifice, initial encounter; E03.9 Hypothyroidism, unspecified; Z79.890 Hormone replacement therapy; Z99.81 Dependence on supplemental oxygen; Z87.891 Personal history of nicotine dependence; Z68.21 Body mass index [BMI] 21.0-21.9, adult; Z95.1 Presence of aortocoronary bypass graft; Z79.4 Long term (current) use of insulin
CPT/HCPCS: 0241U; 36415; 71045; 71250; 74176; 80048; 80053; 81015; 82656; 82962; 83036; 83690; 83993; 85025; 87205; 87324; 87507; 96361; 96365; 99231; 99232; 99233; 99285; 99406; J0696; J1171; J1650; J2405; J2470; J2543

== ENCOUNTER 2024-09-25 10:10 | Emergency (ER) | payer MEDICARE, SELFPAY ==
[2024-09-11 14:54] VITALS: BMI 21.4
[2024-09-25] VITALS (11 sets, daily range): BP systolic 140–161; BP diastolic 76–89; PULSE 92–96; RESP 16–26; TEMP 36.5; O2SAT 93–99; BMI 21.4
--- NOTE | 2024-09-25 10:41 | ED.NAVMDI ---
HPI - Nausea/Vomiting/Diarrhea General Chief complaint: Nausea/Vomiting/Diarrhea Stated complaint: Diarrhea, Vomiting Time Seen by Provider: 09/25/24 10:23 Source: patient and EMS Mode of arrival: EMS History of Present Illness HPI Narrative: This is an 84-year-old male with a history of idiopathic pulmonary fibrosis type 2 diabetes on insulin and DNR/DNI status with limited interventions. He was admitted to the hospital September 14 with possible diverticulitis however subsequently tested positive for C difficile and was treated with vancomycin as well as initially receiving IV antibiotics for diverticulitis. I reviewed the discharge summary. I reviewed the ED visit from 14 of September. He was discharged from the hospital on oral vancomycin and completed the course of therapy. He says his diarrhea never really went away. Beginning last night, he had more severe diarrhea and began having some nausea today. He has not having fevers she has not having abdominal pain his diarrhea has not been bloody. Related Data Home Medications Medication Instructions Recorded Confirmed furosemide 40 mg tablet 40 mg PO QAM 09/11/24 09/11/24 gabapentin 300 mg capsule 300 mg PO 3XD 09/11/24 09/11/24 insulin glargine 100 unit/mL (3 10 unit SUBCUT BID 09/11/24 09/11/24 mL) subcutaneous pen (Lantus Solostar U-100 Insulin) levothyroxine 175 mcg tablet 175 mcg PO DAILY 09/11/24 09/11/24 ondansetron HCl 4 mg tablet 4 mg PO BID PRN Nausea And Vomiting 09/11/24 09/11/24 tadalafil 20 mg tablet 20 mg PO DAILY 09/11/24 09/11/24 valsartan 40 mg tablet 40 mg PO DAILY 09/11/24 09/11/24 Previous Rx's Medication Instructions Recorded Saccharomyces boulardii 250 mg 500 mg (2 x 250 mg) PO BID #120 09/14/24 capsule (Florastor) caps vancomycin 125 mg capsule 125 mg PO Q6H #32 caps 09/14/24 Allergies Allergy/AdvReac Type Severity Reaction Status Date / Time naproxen [From Aleve] Allergy Verified 09/11/24 09:59 Patient History Medical History IPF (idiopathic pulmonary fibrosis) CAD (coronary artery disease) Surgical History Hx of CABG Social History household members: spouse Smoking Status: Former smoker Smoking Status: Former smoker Exam Initial Vital Signs Initial Vital Signs: Vital Signs Temperature 97.7 F 09/25/24 10:18 Pulse Rate 93 H 09/25/24 10:18 Respiratory Rate 16 09/25/24 10:18 Blood Pressure 148/84 H 09/25/24 10:18 Pulse Oximetry 99 09/25/24 10:18 Oxygen Delivery Method Nasal Cannula 09/25/24 10:18 Oxygen Flow Rate 3 09/25/24 10:18 Const Other: Appears to be in no distress. Oral mucosa is moist Resp Other: Normal respiratory effort Cardio Other: Normal heart rate GI Other: Abdomen soft and nontender. Neuro Other: Alert and oriented no obvious neuro deficits Course Orders Ordered: Discontinued Medications Ondansetron HCl (Ondansetron 4 Mg Odt) 4 mg SL NOW ONE Stop: 09/25/24 10:41 Last Admin: 09/25/24 10:47 Dose: 4 mg Documented By: RB Vital Signs Vital signs: Vital Signs - 8 hr 09/25/24 12:30 09/25/24 12:44 09/25/24 12:44 Pulse Rate 93 H 96 H Respiratory Rate 24 Blood Pressure 141/83 H Pulse Oximetry 99 99 Oxygen Delivery Method Room Air 09/25/24 13:00 09/25/24 13:00 Pulse Rate 95 H Respiratory Rate 21 Blood Pressure 140/76 Pulse Oximetry 98 Oxygen Delivery Method MDM - Nausea/Vomiting/Diarrhea Lab Data Lab results narrative: CBC with diff is unremarkable, CMP shows an elevated creatinine which is baseline. Stool PCR panel was negative and C diff is negative 09/25/24 11:00 09/25/24 11:00 Labs: Lab Results 09/25/24 09/25/24 Range/Units 10:25 11:00 WBC 6.6 (4.5-11.0) X10^3/uL RBC 4.44 L (4.5-5.9) X10^6/uL Hgb 14.5 (13.5-17.5) g/dL Hct 43.6 (41-53) % MCV 98.1 (80-100) fL MCH 32.6 (26-34) PG MCHC 33.3 (30-36) % RDW 18.3 H (11.6-14.8) % Plt Count 96 L (150-400) X10^3/uL Neut % (Auto) 58.8 (50-75) % Lymph % (Auto) 25.2 (25-40) % [place] % (Auto) 10.3 (3-14) % Eos % (Auto) 4.2 H (2-4) % Baso % (Auto) 1.5 (0-2) % Neut # (Auto) 3900 (9635-9062) /uL Lymph # (Auto) 1700 (2891-9063) /uL [place] # (Auto) 700 (0-900) /uL Eos # (Auto) 300 (0-450) /uL Baso # (Auto) 100 (0-100) /uL Sodium 137 (137-145) mmol/L Potassium 3.7 (3.4-5.1) mmol/L Chloride 100 (98-107) mmol/L Carbon Dioxide 28 (22-32) mmol/L BUN 24 H (9-20) mg/dL Creatinine 1.42 H (0.66-1.25) mg/dL Estimated GFR 49 L (>60) mL/min BUN/Creatinine Ratio 16.9 (6-22) Glucose 82 (80-110) mg/dL Calcium 8.7 (8.4-10.2) mg/dL Total Bilirubin 1.6 H (0.2-1.3) mg/dL AST 54 (17-59) IU/L ALT 28 (<50) IU/L Alkaline Phosphatase 232 H (38-126) U/L Total Protein 8.4 H (6.3-8.2) g/dL Albumin 4.4 (3.5-5.0) g/dL Globulin 4.0 (1.7-4.1) g/dL Albumin/Globulin Ratio 1.1 (1.0-2.8) Stl C. cayetanensis PCR Not detected (Not Detect) Stool Rotavirus (PCR) Not detected (Not Detect) Stool Adenovirus (PCR) Not detected (Not Detect) Stool Astrovirus (PCR) Not detected (Not Detect) Stool Cryptosporidium PCR Not detected (Not Detect) Stl E.coli Shiga Tox PCR Not detected (Not Detect) St Sh/Enteroin Ecoli PCR Not detected (Not Detect) Stl Enterotoxigenic E PCR Not detected (Not Detect) Stool EPEC (PCR) Not detected (Not Detect) Stl E. histolytica PCR Not detected (Not Detect) Stool Giardia Lamblia PCR Not detected (Not Detect) Stool Sapovirus (PCR) Not detected (Not Detect) Stl P. shigelloides PCR Not detected (Not Detect) St Y.enterocolitica PCR Not detected (Not Detect) Stool Vibrio (PCR) Not detected (Not Detect) Stl Vibrio cholerae PCR Not detected (Not Detect) Stl Enteroaggr Ecoli PCR Not detected (Not Detect) Stl Norovirus GI/GII PCR Not detected (Not Detect) Campylobacter (PCR) Not detected (Not Detect) C. difficile Tox (PCR) Not detected (Not Detect) Salmonella (PCR) Not detected (Not Detect) MDM Narrative Medical decision making narrative: 84-year-old male recently treated for C difficile diarrhea presenting with recurrence of diarrhea. Exam is reassuring, he appears to be appropriately hydrated test negative for C diff and other pathogens today. Had some nausea earlier this is improved with Zofran. He does not have abdominal tenderness, recently had diverticulitis also I do not think he is diverticulitis or any other potentially surgically she today. I think can be reasonable to use some Imodium and follow up soon with primary care. He is to return if he is getting worse Discharge Plan Departure Patient Disposition: Home Clinical Impression: Acute diarrhea Activity Restrictions/Additional Instructions: Emergency department evaluation today is reassuring. Tested negative for C difficile and other infectious causes of diarrhea. No test is perfect so if you are having persistent symptoms you should see your primary care provider early next week for a recheck. I think it is safe to use Imodium as needed to control diarrhea. Get adequate fluids and diet as tolerated. May use ondansetron as needed for nausea. If you are having increasing pain bloody diarrhea fevers uncontrolled vomiting or other acute symptoms recheck in the emergency department Prescriptions: No Action furosemide 40 mg tablet 40 mg PO QAM levothyroxine 175 mcg tablet 175 mcg PO DAILY ondansetron HCl 4 mg tablet 4 mg PO BID PRN (Reason: Nausea And Vomiting) Patient Comments: [NO ORIGINAL SIG] gabapentin 300 mg capsule 300 mg PO 3XD valsartan 40 mg tablet 40 mg PO DAILY tadalafil 20 mg Tablet 20 mg PO DAILY insulin glargine [Lantus Solostar U-100 Insulin] 100 unit/mL (3 mL) insulin pen 10 unit SUBCUT BID Patient Comments: [NO ORIGINAL SIG] vancomycin 125 mg Capsule 125 mg PO Q6H Qty: 32 0RF Saccharomyces boulardii [Florastor] 250 mg capsule 500 mg PO BID Qty: 120 0RF Referrals: Ria Yang MD [Primary Care Provider] - Stand Alone Forms: Patient Portal/API/Survey
[2024-09-25] MEDS: ONDANSETRON 4 MG ODT SL (10:47)
[2024-09-25 11:10] LABS: Add Manual Diff / Slide Review NO; Basophils Absolute Auto 100 /uL (0-100); Basophils Percent Auto 1.5 % (0-2); Eosinophils Absolute Auto 300 /uL (0-450); Eosinophils Percent Auto 4.2 % (2-4); Hematocrit 43.6 % (41-53); Hemoglobin 14.5 g/dL (13.5-17.5); Lymphocytes Absolute Auto 1700 /uL (1100-4500); Lymphocytes Percent Auto 25.2 % (25-40); Mean Corpuscular HGB Conc 33.3 % (30-36); Mean Corpuscular Hemoglobin 32.6 PG (26-34); Mean Corpuscular Volume 98.1 fL (80-100); Monocytes Absolute Auto 700 /uL (0-900); Monocytes Percent Auto 10.3 % (3-14); Neutrophils Absolute Auto 3900 /uL (1500-7000); Neutrophils Percent Auto 58.8 % (50-75); Platelet Count 96 X10^3/uL (150-400); Red Blood Cell Count 4.44 X10^6/uL (4.5-5.9); Red Cell Distribution Width 18.3 % (11.6-14.8); White Blood Cell Count 6.6 X10^3/uL (4.5-11.0)
[2024-09-25 11:21] LABS: Alanine Aminotransferase 28 IU/L (<50); Albumin 4.4 g/dL (3.5-5.0); Albumin Globulin Ratio 1.1 (1.0-2.8); Alkaline Phosphatase 232 U/L (38-126); Aspartate Aminotransferase 54 IU/L (17-59); BUN Creatinine Ratio 16.9 (6-22); Bilirubin Total 1.6 mg/dL (0.2-1.3); Blood Urea Nitrogen 24 mg/dL (9-20); Calcium 8.7 mg/dL (8.4-10.2); Carbon Dioxide 28 mmol/L (22-32); Chloride 100 mmol/L (98-107); Estimated Glomerular Filt Rate 49 mL/min (>60); Glucose 82 mg/dL (80-110); HEMOLYSIS < 15 (0-50); Potassium 3.7 mmol/L (3.4-5.1); Sodium 137 mmol/L (137-145); Total Protein 8.4 g/dL (6.3-8.2)
[2024-09-25 13:31] LABS: Adenovirus F 40/41 Not Detected (Not Detect); Astrovirus Not Detected (Not Detect); Campylobacter Not Detected (Not Detect); Clostridium difficile toxin AB Not Detected (Not Detect); Cryptosporidium Not Detected (Not Detect); Cyclospora cayetanensis Not Detected (Not Detect); Entamoeba histolytica Not Detected (Not Detect); Enteroaggregative E.coli Not Detected (Not Detect); Enteropathogenic E.coli Not Detected (Not Detect); Enterotoxigenic E.coli It/st Not Detected (Not Detect); Giardia lamblia Not Detected (Not Detect); Norovirus GI/GII Not Detected (Not Detect); Plesiomonsa shigelloides Not Detected (Not Detect); Rotavirus A Not Detected (Not Detect); Salmonella Not Detected (Not Detect); Sapovirus Not Detected (Not Detect); Shiga-like toxin-prod E.coli Not Detected (Not Detect); Shigella/Enteroinvasive E.coli Not Detected (Not Detect); Vibrio Not Detected (Not Detect); Vibrio cholerae Not Detected (Not Detect); Yersinia enterocolitica Not Detected (Not Detect)
== END 2024-09-25 13:53 | disposition home or self-care (01) ==
PROVIDERS: Emergency Provider Emergency Medicine; PCP Internal Medicine
DX: R19.7 Diarrhea, unspecified (principal); E11.9 Type 2 diabetes mellitus without complications; Z79.4 Long term (current) use of insulin; I25.10 Atherosclerotic heart disease of native coronary artery without angina pectoris; Z87.891 Personal history of nicotine dependence; Z86.19 Personal history of other infectious and parasitic diseases
CPT/HCPCS: 36415; 80053; 85025; 87507; 99283; 99284

== ENCOUNTER 2024-10-05 11:05 | Emergency (ER) | payer MEDICARE, SELFPAY ==
[2024-09-11 14:54] VITALS: BMI 21.4
[2024-10-05] VITALS (10 sets, daily range): BP systolic 130–146; BP diastolic 76–85; PULSE 84–92; RESP 15–17; TEMP 36.4; O2SAT 94–100; BMI 20.9
[2024-10-05 11:42] LABS: Add Manual Diff / Slide Review NO; Basophils Absolute Auto 100 /uL (0-100); Basophils Percent Auto 1.1 % (0-2); Eosinophils Absolute Auto 300 /uL (0-450); Eosinophils Percent Auto 3.6 % (2-4); Hematocrit 40.1 % (41-53); Hemoglobin 13.1 g/dL (13.5-17.5); Lymphocytes Absolute Auto 1900 /uL (1100-4500); Lymphocytes Percent Auto 24.1 % (25-40); Mean Corpuscular HGB Conc 32.6 % (30-36); Mean Corpuscular Hemoglobin 32.4 PG (26-34); Mean Corpuscular Volume 99.4 fL (80-100); Monocytes Absolute Auto 1100 /uL (0-900); Monocytes Percent Auto 13.8 % (3-14); Neutrophils Absolute Auto 4600 /uL (1500-7000); Neutrophils Percent Auto 57.4 % (50-75); Platelet Count 114 X10^3/uL (150-400); Red Blood Cell Count 4.03 X10^6/uL (4.5-5.9); Red Cell Distribution Width 18.2 % (11.6-14.8)
[2024-10-05 11:48] LABS: INR 1.2 (0.9-1.3); Prothrombin Time 13.7 SECONDS (9.4-12.5)
[2024-10-05 11:51] LABS: Alanine Aminotransferase 24 IU/L (<50); Albumin 4.2 g/dL (3.5-5.0); Albumin Globulin Ratio 1.1 (1.0-2.8); Alkaline Phosphatase 341 U/L (38-126); Aspartate Aminotransferase 41 IU/L (17-59); BUN Creatinine Ratio 17.9 (6-22); Bilirubin Total 1.5 mg/dL (0.2-1.3); Blood Urea Nitrogen 30 mg/dL (9-20); Calcium 8.6 mg/dL (8.4-10.2); Carbon Dioxide 29 mmol/L (22-32); Chloride 98 mmol/L (98-107); Creatine Kinase 55 U/L (55-170); Estimated Glomerular Filt Rate 40 mL/min (>60); Glucose 129 mg/dL (80-110); HEMOLYSIS < 15 (0-50); Lipase 34 U/L (23-300); Magnesium 2.3 mg/dL (1.6-2.3); PTT Partial Thromboplastin Tim 37 SECONDS (25.1-36.5); Potassium 4.3 mmol/L (3.4-5.1); Sodium 136 mmol/L (137-145); Total Protein 8.2 g/dL (6.3-8.2)
[2024-10-05 12:03] LABS: Troponin I 0.032 ng/mL (0.01-0.034)
--- NOTE | 2024-10-05 14:10 | ED_ITS ---
HPI - Weakness General Chief complaint: Weakness Stated complaint: Diarrhea x 1 month Time Seen by Provider: 10/05/24 13:55 Source: patient Mode of arrival: EMS History of Present Illness HPI Narrative: Patient 84-year-old male history of idiopathic pulmonary fibrosis type 2 diabetes on insulin DNR DNI status limited interventions presenting for the 3rd time with ongoing diarrhea. He was admitted to the hospital September 14 with possible diverticulitis but tested positive for C diff was treated vancomycin. He was seen again on September 25 after finishing oral vancomycin. He reports that he persists to have liquid watery diarrhea every time he or drinks. It wakes him from his sleep. He has not dizzy not lightheaded he has not passed out he has no further abdominal pain. Just generally feeling unwell feeling nauseated difficult to stay hydrated he feels like he is lost weight. Related Data Home Medications Medication Instructions Recorded Confirmed furosemide 40 mg tablet 40 mg PO QAM 09/11/24 09/11/24 gabapentin 300 mg capsule 300 mg PO 3XD 09/11/24 09/11/24 insulin glargine 100 unit/mL (3 10 unit SUBCUT BID 09/11/24 09/11/24 mL) subcutaneous pen (Lantus Solostar U-100 Insulin) levothyroxine 175 mcg tablet 175 mcg PO DAILY 09/11/24 09/11/24 ondansetron HCl 4 mg tablet 4 mg PO BID PRN Nausea And Vomiting 09/11/24 09/11/24 tadalafil 20 mg tablet 20 mg PO DAILY 09/11/24 09/11/24 valsartan 40 mg tablet 40 mg PO DAILY 09/11/24 09/11/24 Previous Rx's Medication Instructions Recorded Saccharomyces boulardii 250 mg 500 mg (2 x 250 mg) PO BID #120 09/14/24 capsule (Florastor) caps vancomycin 125 mg capsule 125 mg PO Q6H #32 caps 09/14/24 ondansetron 4 mg disintegrating 4 mg PO Q8H PRN nausea and 10/05/24 tablet vomiting #20 tabs vancomycin 125 mg capsule 125 mg PO QID #40 caps 10/05/24 Allergies Allergy/AdvReac Type Severity Reaction Status Date / Time naproxen [From Aleve] Allergy Verified 10/05/24 11:12 Patient History Medical History IPF (idiopathic pulmonary fibrosis) CAD (coronary artery disease) Surgical History Hx of CABG Social History household members: spouse Smoking Status: Former smoker Smoking Status: Former smoker Exam Initial Vital Signs Initial Vital Signs: Vital Signs Temperature 97.6 F 10/05/24 11:12 Pulse Rate 92 H 10/05/24 11:12 Respiratory Rate 15 10/05/24 11:12 Blood Pressure 130/81 10/05/24 11:12 Pulse Oximetry 95 10/05/24 11:12 Oxygen Delivery Method Nasal Cannula 10/05/24 11:12 Oxygen Flow Rate 3 10/05/24 11:12 GENERAL: Alert pleasant well-appearing 84-year-old male and in no acute distress. HEENT: Head atraumatic,EOMI, pupils reactive, face symmetric, moist mucous membranes CARDIOVASCULAR: Regular rate and rhythm without murmurs, rubs or gallops. RESPIRATORY: Breath sounds equal bilaterally, no wheezes rales or rhonchi. ABDOMEN: Soft, nontender. Normoactive bowel sounds all 4 quadrants. No guarding or rebound. EXTREMITIES: Normal range of motion, no clubbing or edema. Neurovascularly intact NEUROLOGICAL: Alert and oriented x4.Normal gait and speech. SKIN: Warm, dry, no laceration, no petechiae, no rashes or lesions. Course Orders Ordered: ED Orders 10/05/24 11:20 Complete Blood Count AUTO DIFF Stat Comprehensive Metabolic Panel Stat Lipase Stat Magnesium Stat PTT Partial Thromboplastin [place] Stat Prothrombin Time INR Stat Troponin & CK Cardiac Panel Stat Discontinued Medications Vancomycin HCl (Vancomycin 125 Mg Capsule) 125 mg PO NOW ONE Stop: 10/05/24 14:26 Last Admin: 10/05/24 14:36 Dose: 125 mg Documented By: NELL Vital Signs Vital signs: Vital Signs - 8 hr 10/05/24 11:12 10/05/24 11:49 10/05/24 11:58 Temperature 97.6 F Pulse Rate 92 H 87 86 Respiratory Rate 15 17 Blood Pressure 130/81 137/84 Pulse Oximetry 95 98 99 Oxygen Delivery Method Nasal Cannula Nasal Cannula Oxygen Flow Rate 3 3 10/05/24 11:58 10/05/24 12:00 10/05/24 12:00 Temperature Pulse Rate 85 Respiratory Rate Blood Pressure 130/85 139/80 Pulse Oximetry 99 Oxygen Delivery Method Oxygen Flow Rate 10/05/24 12:30 10/05/24 12:30 10/05/24 13:00 Temperature Pulse Rate 84 86 Respiratory Rate Blood Pressure 135/82 Pulse Oximetry 98 100 Oxygen Delivery Method Oxygen Flow Rate 10/05/24 13:00 10/05/24 13:30 10/05/24 13:30 Temperature Pulse Rate 86 Respiratory Rate Blood Pressure 140/84 146/85 H Pulse Oximetry 94 Oxygen Delivery Method Oxygen Flow Rate 10/05/24 14:00 10/05/24 14:00 10/05/24 14:37 Temperature Pulse Rate 87 90 Respiratory Rate Blood Pressure 138/78 Pulse Oximetry 99 94 Oxygen Delivery Method Oxygen Flow Rate 10/05/24 14:38 10/05/24 14:38 Temperature Pulse Rate 90 Respiratory Rate Blood Pressure 133/76 Pulse Oximetry 94 Oxygen Delivery Method Oxygen Flow Rate MDM - Weakness Lab Data 10/05/24 11:20 10/05/24 11:20 Labs: Lab Results 10/05/24 Range/Units 11:20 WBC 8.0 (4.5-11.0) X10^3/uL RBC 4.03 L (4.5-5.9) X10^6/uL Hgb 13.1 L (13.5-17.5) g/dL Hct 40.1 L (41-53) % MCV 99.4 (80-100) fL MCH 32.4 (26-34) PG MCHC 32.6 (30-36) % RDW 18.2 H (11.6-14.8) % Plt Count 114 L (150-400) X10^3/uL Neut % (Auto) 57.4 (50-75) % Lymph % (Auto) 24.1 L (25-40) % [place] % (Auto) 13.8 (3-14) % Eos % (Auto) 3.6 (2-4) % Baso % (Auto) 1.1 (0-2) % Neut # (Auto) 4600 (1774-2957) /uL Lymph # (Auto) 1900 (2670-5572) /uL [place] # (Auto) 1100 H (0-900) /uL Eos # (Auto) 300 (0-450) /uL Baso # (Auto) 100 (0-100) /uL PT 13.7 H (9.4-12.5) SECONDS INR 1.2 (0.9-1.3) APTT 37 H (25.1-36.5) SECONDS Sodium 136 L (137-145) mmol/L Potassium 4.3 (3.4-5.1) mmol/L Chloride 98 (98-107) mmol/L Carbon Dioxide 29 (22-32) mmol/L BUN 30 H (9-20) mg/dL Creatinine 1.68 H (0.66-1.25) mg/dL Estimated GFR 40 L (>60) mL/min BUN/Creatinine Ratio 17.9 (6-22) Glucose 129 H (80-110) mg/dL Calcium 8.6 (8.4-10.2) mg/dL Magnesium 2.3 (1.6-2.3) mg/dL Total Bilirubin 1.5 H (0.2-1.3) mg/dL AST 41 (17-59) IU/L ALT 24 (<50) IU/L Alkaline Phosphatase 341 H (38-126) U/L Total Creatine Kinase 55 (55-170) U/L Troponin I 0.032 (0.01-0.034) ng/mL Total Protein 8.2 (6.3-8.2) g/dL Albumin 4.2 (3.5-5.0) g/dL Globulin 4.0 (1.7-4.1) g/dL Albumin/Globulin Ratio 1.1 (1.0-2.8) Lipase 34 (23-300) U/L [facility] Narrative Medical decision making narrative: Patient 84-year-old male with known C diff infection presenting today with ongoing diarrhea. It sounds as though he has had diarrhea since least August he is finish 1 course of vancomycin he initially had negative C diff test but continues to have symptoms of diarrhea. He gets nauseous every time he eats or drinks anything. Blood work today has been reviewed overall reassuring he has a mild elevation creatinine 1.68 previously 1.42 but has been as high as 1.9. Electrolytes are stable potassium is 4.3. He has no leukocytosis. He was not given a stool sample here in the ED because he says he has not been given anything to eat or drink. At this time patient is still having pain symptoms he has only had 1 neg C diff test. At this time I think reasonable for a 2nd vancomycin course he reports it did initially help. We did discuss however if symptoms continue he will need different treatment and possibly a GI consultation. He understands and agrees with this. He was offered IV fluids but at this time would really just like to go home. He would like a prescription for Zofran as well. He has not had any vomiting here in the ED Discharge Plan Departure Patient Disposition: Home Clinical Impression: C. difficile diarrhea Instructions: Clostridium difficile Infection Activity Restrictions/Additional Instructions: *You have been diagnosed with presumed persistent C diff colitis *What to do: At this time it is presumed that you still have C diff. We will try 1 more course of antibiotics however fits continuing do need to see your primary care provider you will likely need different and further treatment possibly even referral to GI Please increase your fluids as tolerated recommend electrolyte fluid try to get a protein drinking recommend probiotics as *Continue to take medications as directed Vancomycin 125 mg 4 times a day for 10 days Zofran 4 mg every 8 hours if needed for nausea or vomiting, recommend taking anti nausea medication prior to eating or drinking *Follow up with your primary care provider in 2-3 days or call [phone] *Return to ER if you should have dizziness lightheadedness passing out worsening diarrhea confusion [or] any new, worsening or concerning symptoms Prescriptions: New vancomycin 125 mg capsule 125 mg PO QID Qty: 40 0RF ondansetron 4 mg tablet,disintegrating 4 mg PO Q8H PRN (Reason: nausea and vomiting) Qty: 20 0RF No Action furosemide 40 mg tablet 40 mg PO QAM levothyroxine 175 mcg tablet 175 mcg PO DAILY ondansetron HCl 4 mg tablet 4 mg PO BID PRN (Reason: Nausea And Vomiting) Patient Comments: [NO ORIGINAL SIG] gabapentin 300 mg capsule 300 mg PO 3XD valsartan 40 mg tablet 40 mg PO DAILY tadalafil 20 mg Tablet 20 mg PO DAILY insulin glargine [Lantus Solostar U-100 Insulin] 100 unit/mL (3 mL) insulin pen 10 unit SUBCUT BID Patient Comments: [NO ORIGINAL SIG] vancomycin 125 mg Capsule 125 mg PO Q6H Qty: 32 0RF Saccharomyces boulardii [Florastor] 250 mg capsule 500 mg PO BID Qty: 120 0RF Referrals: Ria Yang MD [Primary Care Provider] - Stand Alone Forms: Patient Portal/API/Survey
[2024-10-05] MEDS: VANCOMYCIN 125 MG CAPSULE PO (14:36)
== END 2024-10-05 14:50 | disposition home or self-care (01) ==
PROVIDERS: Emergency Provider Emergency Medicine; PCP Internal Medicine
DX: A04.72 Enterocolitis due to Clostridium difficile, not specified as recurrent (principal); E11.9 Type 2 diabetes mellitus without complications; Z79.4 Long term (current) use of insulin; R11.0 Nausea
CPT/HCPCS: 36415; 80053; 82550; 83690; 83735; 84484; 85025; 85610; 85730; 99283; 99285

== ENCOUNTER → 2024-11-26 10:59 | Outpatient (ROUT) | payer OTHER, MEDICARE, SELFPAY ==
[2024-09-11 14:54] VITALS: BMI 21.4
[2024-11-26 11:45] LABS: Blood Urea Nitrogen 27 mg/dL (9-20); Calcium 9.4 mg/dL (8.4-10.2); Carbon Dioxide 32 mmol/L (22-32); Chloride 91 mmol/L (98-107); Estimated Glomerular Filt Rate 37 mL/min (>60); Glucose 147 mg/dL (80-110); HEMOLYSIS < 15 (0-50); Potassium 4.3 mmol/L (3.4-5.1); Sodium 134 mmol/L (137-145)
== END ==
PROVIDERS: PCP Internal Medicine; Visit Provider Family Medicine
DX: J84.112 Idiopathic pulmonary fibrosis (principal)
CPT/HCPCS: 80048; 84443